=== PATIENT | male | born 1945 | race Two or more races ===

== ENCOUNTER 2023-07-21 16:14 | Inpatient (IN) | payer OTHER, MEDICAID ==
[~2023-07-21] VITALS: Ht 165.1 cm; Wt 54.5 kg
[2023-07-21 16:44] LABS: Hemoglobin 10.1 g/dL (13.5-17.5); White Blood Cell 5.4 10^3/uL (4.4-10.8)
[2023-07-21] MEDS: SODIUM CHLORIDE 0.9% 1,000 ML IV ONE (16:45)
[2023-07-21 16:46] LABS: Hematocrit 31.3 % (41.0-53.0); Mean Corpuscular Hemoglobin 33.8 pg (28.0-32.0); Mean Corpuscular Hgb Conc. 32.2 g/dL (32.0-36.0); Mean Corpuscular Volume 105.1 fL (80.0-100.0); Red Blood Cells 2.98 10^6/uL (4.5-5.90); Red Cell Distribution Width 15.6 % (11.8-14.3)
[2023-07-21 16:54] LABS: Chloride 106 mmol/L (98-107); Sodium 137 mmol/L (136-145)
[2023-07-21 16:55] LABS: Anion Gap 3 (5-15); Carbon Dioxide 28 mmol/L (20-30)
[2023-07-21 16:56] LABS: Basophils % (manual) 0 (0.0-2.0); Blast Cells 0; Calcium 8.9 mg/dL (8.7-10.4); Metamyelocytes % 0; Promyelocytes % 0; Reactive Lymphocytes 0
[2023-07-21 17:01] LABS: BUN/Creatinine Ratio 13.8 (10.0-20.0); Blood Urea Nitrogen 22 mg/dL (9-23); Glucose 164 mg/dL (74-106)
[2023-07-21 17:15] VITALS: PULSE 62; RESP 18; O2SAT 96
[2023-07-21 17:22] LABS: Band Neutrophils % (manual) 3; Lymphocytes % (manual) 14 (10.0-50.0); Monocytes % (manual) 6 (0-12)
[2023-07-21 17:23] LABS: Anisocytosis Slight; Eosinophils % (manual) 4 (0-7); Myelocytes % 1; Platelet Estimate Decreased
[2023-07-21 17:24] LABS: Large Platelets FEW; Macrocytosis Slight; Tear Drop Cells FEW
[2023-07-21 18:50] LABS: Urine Bacteria FEW /hpf (None Seen); Urine Blood 3+ /uL (Negative); Urine Clarity Clear (Clear); Urine Color Yellow (Yellow); Urine Hyaline Cast MOD /lpf (0 - 2); Urine Protein, UAD TRACE (Negative); Urine Sperm PRESENT /hpf (None Seen); Urine Urobilinogen Normal (Negative); Urine WBC 2 /hpf (0 - 3); Urine pH 5.5 (5.0-8.0)
[2023-07-21 19:45] VITALS: PULSE 72; RESP 16; O2SAT 98
[2023-07-21 21:25] LABS: Amphetamine Screen, Urine Neg (NEGATIVE); Barbiturate Scree,Urine Neg (NEGATIVE); Benzodiazephine Screen, Urine Neg (NEGATIVE); Cocaine Screen, Urine Neg (NEGATIVE); Opiate Scree,Urine Neg (NEGATIVE); Phencyclidine Screen, Urine Neg (NEGATIVE)
[2023-07-21 21:26] LABS: Cannabinoid Screen, Urine Neg (NEGATIVE)
[2023-07-21] MEDS: cefTRIAXone 1GM/50ML D5W 50 ML IV ONE (21:31)
[2023-07-21] MEDS ORDERED: ONDANSETRON HCL 4 MG/2 ML VIAL IV PRN (23:30)
[2023-07-21] MEDS ORDERED: NITROGLYCERIN 0.4 MG SL TAB SL PRN (23:30)
[2023-07-21] MEDS ORDERED: MORPHINE SULFATE INJ 2 MG/ml SYRG IV PRN (23:30)
[2023-07-21] MEDS ORDERED: ACETAMINOPHEN 325 MG TAB PO PRN (23:30)
[2023-07-22] VITALS (11 sets, daily range): BP systolic 107–141; BP diastolic 46–72; PULSE 20–78; RESP 14–20; TEMP 97.8–99.3; O2SAT 92–97
[2023-07-22 06:30] LABS: Anion Gap 4 (5-15); Carbon Dioxide 26 mmol/L (20-30); Chloride 109 mmol/L (98-107); Potassium 3.9 mmol/L (3.5-5.1); Sodium 139 mmol/L (136-145)
[2023-07-22 06:32] LABS: Calcium 8.7 mg/dL (8.5-10.1)
[2023-07-22 06:36] LABS: BUN/Creatinine Ratio 14.9 (10.0-20.0); Blood Urea Nitrogen 20 mg/dL (9-23); Glucose 160 mg/dL (74-106)
[2023-07-22] MEDS: ASPirin 81 mg TAB PO SCH (09:17)
[2023-07-22] MEDS: LISINOPRIL 5 MG TAB PO SCH (09:19)
[2023-07-22 11:51] LABS: Basophils # (auto) 0 10 ^3/uL (0-0.2); Basophils % (auto) 0.2 % (0.0-2.0); Eosinophils # (auto) 0.4 10 ^3/uL (0-0.8); Hematocrit 29.8 % (41.0-53.0); Hemoglobin 9.6 g/dL (13.5-17.5); Lymphocytes # (auto) 0.8 10 ^3/uL (0.4-5.4); Mean Corpuscular Hgb Conc. 32.3 g/dL (32.0-36.0); Monocytes # (auto) 0.1 10 ^3/uL (0-1.3); Red Cell Distribution Width 15.2 % (11.8-14.3)
[2023-07-22 11:53] LABS: Eosinophils % (auto) 7.9 % (0.0-7.0); Lymphocytes % (auto) 17.1 % (10.0-50.0); Mean Corpuscular Hemoglobin 33.8 pg (28.0-32.0); Mean Corpuscular Volume 104.6 fL (80.0-100.0); Monocytes % (auto) 1.3 % (0.0-12.0); Neutrophils # (auto) 3.3 10 ^3/uL (1.6-8.6); Neutrophils % (auto) 73.5 % (37.0-80.0); Red Blood Cells 2.85 10^6/uL (4.5-5.90); White Blood Cell 4.5 10^3/uL (4.4-10.8)
[2023-07-22 12:02] LABS: INR 1.09 (0.9-1.15); Partial Thromboplastin Time 27.4 SEC (24.5-34.5); Prothrombin Time 11.4 sec (9.3-11.8)
[2023-07-22 12:05] LABS: Albumin 3.6 g/dL (3.2-4.8); Alkaline Phosphatase 64 U/L (46-116); Anion Gap 1 (5-15); Aspartate Aminotransferase 13 U/L (13-40); BUN/Creatinine Ratio 15.2 (10.0-20.0); Bilirubin, Total 0.6 mg/dL (0.2-1.0); Blood Urea Nitrogen 20 mg/dL (9-23); Calcium 8.8 mg/dL (8.5-10.1); Carbon Dioxide 29 mmol/L (20-30); Chloride 106 mmol/L (98-107); Cholesterol 87 mg/dL (< 200); Glucose 229 mg/dL (74-106); HDL Cholesterol 32 mg/dL (40-59); LDL Cholesterol 43 mg/dL (< 100); Phosphorus 2.9 mg/dL (2.4-5.1); Potassium 4.2 mmol/L (3.5-5.1); Sodium 136 mmol/L (136-145); Total Protein 6.1 g/dL (5.7-8.2); Triglycerides 75 mg/dL (< 150)
[2023-07-22 12:07] LABS: Alanine Aminotransferase < 9 U/L (7-40)
[2023-07-22 12:11] LABS: % Iron Saturation 42.5 % (20-55)
[2023-07-22] MEDS ORDERED: DEXTROSE (50%) 50ML SYRG IV PRN (12:15)
[2023-07-22 12:19] LABS: Wright Stain Ready for Review
[2023-07-22 12:25] LABS: Magnesium 1.8 mg/dL (1.6-2.6)
[2023-07-22] MEDS: THIAMINE 100mg/ml INJ (200mg/2ml VIAL) IV ONE (14:36)
[2023-07-22] MEDS: SODIUM CHLORIDE 0.9% 1,000 ML IV SCH (14:36)
[2023-07-22] MEDS: NICOTINE 21MG/24 HR TOPICAL PATCH TD ONE (14:40)
[2023-07-22] MEDS: FOLIC ACID 1 MG in D5W 5% 50 ML INJ ONE (15:23)
[2023-07-22] MEDS: InsuLIN REG 1unit/0.01ml Soln (100units/ml) SC SCH (17:00)
[2023-07-22] MEDS: ACCU-CHEK COMFORT CURVE STRIP VI SCH (17:00)
[2023-07-22] MEDS: ATORVASTATIN 20 MG TAB PO SCH (21:16)
[2023-07-23] VITALS (8 sets, daily range): BP systolic 121–145; BP diastolic 55–66; PULSE 58–77; RESP 17–20; TEMP 97.8–98.5; O2SAT 94–99
[2023-07-23] MEDS: THIAMINE 100mg/ml INJ (200mg/2ml VIAL) IV SCH (09:19)
[2023-07-23] MEDS: FOLIC ACID 1 MG in D5W 5% 50 ML INJ SCH (09:20)
[2023-07-23] MEDS: NICOTINE 21MG/24 HR TOPICAL PATCH TD SCH (09:21)
[2023-07-23 10:04] LABS: Chloride 108 mmol/L (98-107); Sodium 137 mmol/L (136-145)
[2023-07-23 10:05] LABS: Anion Gap 3 (5-15); Calcium 9.1 mg/dL (8.5-10.1); Carbon Dioxide 26 mmol/L (20-30)
[2023-07-23 10:10] LABS: BUN/Creatinine Ratio 12.9 (10.0-20.0); Blood Urea Nitrogen 17 mg/dL (9-23); Glucose 169 mg/dL (74-106)
[2023-07-23 11:10] LABS: Basophils # (auto) 0 10 ^3/uL (0-0.2); Basophils % (auto) 0.2 % (0.0-2.0); Eosinophils # (auto) 0.5 10 ^3/uL (0-0.8); Eosinophils % (auto) 7.5 % (0.0-7.0); Hemoglobin 10.6 g/dL (13.5-17.5); Lymphocytes % (auto) 13.3 % (10.0-50.0); Mean Corpuscular Hemoglobin 33.9 pg (28.0-32.0); Mean Corpuscular Hgb Conc. 32.2 g/dL (32.0-36.0); Mean Corpuscular Volume 105.5 fL (80.0-100.0); Monocytes # (auto) 0.1 10 ^3/uL (0-1.3); Neutrophils # (auto) 5.6 10 ^3/uL (1.6-8.6); Nucleated Red Blood Cells % 0.1 %; Red Blood Cells 3.13 10^6/uL (4.5-5.90); Red Cell Distribution Width 15.2 % (11.8-14.3); White Blood Cell 7.1 10^3/uL (4.4-10.8)
[2023-07-23] MEDS: METOPROLOL TARTRATE 25 MG TAB PO ONE (17:07)
[2023-07-23] MEDS: METOPROLOL TARTRATE 25 MG TAB PO SCH (22:28)
[2023-07-24] VITALS (8 sets, daily range): BP systolic 129–149; BP diastolic 44–76; PULSE 57–74; RESP 16–20; TEMP 97.8–98.6; O2SAT 93–99
[2023-07-24 06:21] LABS: Basophils # (auto) 0 10 ^3/uL (0-0.2); Basophils % (auto) 0.2 % (0.0-2.0); Eosinophils # (auto) 0.5 10 ^3/uL (0-0.8); Eosinophils % (auto) 7.4 % (0.0-7.0); Monocytes # (auto) 0.1 10 ^3/uL (0-1.3)
[2023-07-24 06:23] LABS: Hematocrit 29.4 % (41.0-53.0); Hemoglobin 9.7 g/dL (13.5-17.5); Lymphocytes # (auto) 0.8 10 ^3/uL (0.4-5.4); Lymphocytes % (auto) 11.5 % (10.0-50.0); Mean Corpuscular Hemoglobin 34.4 pg (28.0-32.0); Mean Corpuscular Volume 104.2 fL (80.0-100.0); Monocytes % (auto) 0.8 % (0.0-12.0); Neutrophils # (auto) 5.5 10 ^3/uL (1.6-8.6); Neutrophils % (auto) 80.1 % (37.0-80.0); Red Blood Cells 2.82 10^6/uL (4.5-5.90); Red Cell Distribution Width 15.4 % (11.8-14.3); White Blood Cell 6.9 10^3/uL (4.4-10.8)
[2023-07-24 06:32] LABS: Albumin 3.5 g/dL (3.2-4.8); Alkaline Phosphatase 60 U/L (46-116); Anion Gap 5 (5-15); Aspartate Aminotransferase 12 U/L (13-40); Bilirubin, Total 0.5 mg/dL (0.2-1.0); Blood Urea Nitrogen 17 mg/dL (9-23); Calcium 8.1 mg/dL (8.7-10.4); Carbon Dioxide 25 mmol/L (20-30); Chloride 109 mmol/L (98-107); Glucose 118 mg/dL (74-106); Magnesium 1.9 mg/dL (1.6-2.6); Sodium 139 mmol/L (136-145); Total Protein 6.4 g/dL (5.7-8.2)
[2023-07-24 06:37] LABS: Alanine Aminotransferase < 9 U/L (7-40)
[2023-07-24] MEDS: EMPAGLIFLOZIN 10 MG TAB PO SCH (09:37)
[2023-07-24] MEDS: SPIRONOLACTONE 25 MG TAB PO SCH (09:37)
[2023-07-24] MEDS ORDERED: FURO1TAB31 PO (17:52)
[2023-07-24] MEDS ORDERED: METF-370 PO ×2 (17:52)
[2023-07-24] MEDS ORDERED: ATOR40TA52 PO (17:52)
[2023-07-24] MEDS ORDERED: GLIP10TA9 PO (17:52)
[2023-07-24] MEDS: MAGNESIUM OXIDE 400 MG TAB PO ONE (19:34)
[2023-07-24] MEDS: AMIODARONE HCL 200 MG TAB PO ONE (19:34)
[2023-07-25 05:00] VITALS: BP 104/64; PULSE 59; RESP 16; TEMP 98.3; O2SAT 99
[2023-07-25 08:00] VITALS: PULSE 61
[2023-07-25 08:05] VITALS: PULSE 65; RESP 16; O2SAT 99
[2023-07-25 09:00] VITALS: BP 121/66; PULSE 65; RESP 16; TEMP 97.8; O2SAT 99
[2023-07-25] MEDS: AMIODARONE HCL 200 MG TAB PO SCH (09:18)
[2023-07-25] MEDS: MAGNESIUM OXIDE 400 MG TAB PO SCH (09:19)
[2023-07-25] MEDS ORDERED: SPIR25TA PO (12:32)
[2023-07-25] MEDS ORDERED: AMIO200T33 PO (12:32)
[2023-07-25] MEDS ORDERED: LISI20TA56 PO (12:32)
[2023-07-25] MEDS ORDERED: EMPA1TAB PO (12:32)
[2023-07-25] MEDS ORDERED: MET25T PO (12:32)
[2023-07-25 13:00] VITALS: BP 143/57; PULSE 64; RESP 18; TEMP 97.6; O2SAT 98
[2023-07-25 13:15] VITALS: BP 121/66; PULSE 67
== END 2023-07-25 14:55 | disposition home or self-care (01) | DRG 640 ==
LOC: EDBD 16:14 → ER 16:14 → TELE-WESTW 23:22 → TELE 23:22 → TELE-WESTW 07-22 02:56
PROVIDERS: ADMIT Nurse Practitioner; ATTEND Internal Medicine
DX: E86.0 Dehydration (principal); N17.0 Acute kidney failure with tubular necrosis; S06.9X1A Unspecified intracranial injury with loss of consciousness of 30 minutes or less, initial encounter; I50.22 Chronic systolic (congestive) heart failure; I47.29 Other ventricular tachycardia; D69.6 Thrombocytopenia, unspecified; Z20.822 Contact with and (suspected) exposure to COVID-19; F10.10 Alcohol abuse, uncomplicated; I95.1 Orthostatic hypotension; E11.9 Type 2 diabetes mellitus without complications; E78.5 Hyperlipidemia, unspecified; I11.0 Hypertensive heart disease with heart failure; D53.9 Nutritional anemia, unspecified; H91.93 Unspecified hearing loss, bilateral; Z79.4 Long term (current) use of insulin; Z86.79 Personal history of other diseases of the circulatory system; Z72.0 Tobacco use; W18.39XA Other fall on same level, initial encounter; Y93.89 Activity, other specified; Y92.89 Other specified places as the place of occurrence of the external cause; Y99.8 Other external cause status
CPT/HCPCS: 36415; 70450; 71045; 72125; 76775; 80048; 80053; 80061; 80307; 80320; 81001; 82140; 82270; 82306; 82607; 82746; 82962; 83010; 83036; 83540; 83550; 83605; 83615; 83735; 84100; 84443; 84484; 85007; 85025; 85027; 85045; 85610; 85730; 93005; 93306; 93886; 97110; 97116; 97163; 97530; G0378; J1815; J7060

== ENCOUNTER 2024-07-05 13:44 | Inpatient (IN) | payer MEDICAID, OTHER ==
[~2024-07-05] VITALS: Ht 163.8 cm; Wt 46.0 kg
[~2024-07-05 13:44] MED LIST: AMIO200T33 PO; ATOR40TA52 PO; EMPA1TAB PO; FURO1TAB31 PO; GLIP10TA9 PO; LISI20TA56 PO; MET25T PO; METF-370 PO; SPIR25TA PO
--- NOTE | 2024-07-05 14:24 | ED.PDOC ---
Altered Mental Status HPI Comments 79-year-old male with unknown PMHx presents with a chief complaint of ALOC x unknown onset. Patient is alone and came to the ER complaining of weakness. Patient is hard of hearing, rambling speech and nonlinear train of thought. No family present to verify patients baseline. Patient was hypotensive in triage at 80/33 and 76/29. Unable to gather further medical information at this time due to patients ALOC. Chief Complaint: General Weakness Time Seen by MD: 14:14 Primary Care Provider: CARISA Rubi Notes: Medications, Allergies Allergies: Coded Allergies: NO KNOWN ALLERGIES (Unverified , 07/21/23) Home Meds Active Scripts Metoprolol Tartrate (Lopressor) 25 Mg Tb, 12.5 MG PO BID, #30 TAB 3 Refills Prov:CHALINO WAN MD 07/25/23 Spironolactone (Aldactone) 25 Mg Tab, 25 MG PO DAILY, #30 TAB Prov:CHALINO WAN MD 07/25/23 Lisinopril (Lisinopril) 20 Mg Tab, 0.5 TAB PO DAILY, #30 TAB 5 Refills Prov:CHALINO WAN MD 07/25/23 Empagliflozin (Jardiance) 10 Mg Tab, 10 MG PO DAILY, #30 TAB 5 Refills Prov:CHALINO WAN MD 07/25/23 Amiodarone Hcl (Amiodarone Hcl) 200 Mg Tab, 200 MG PO BID, #60 TAB Prov:CHALINO WAN MD 07/25/23 Reported Medications Furosemide (Lasix) 40 Mg Tab, 40 MG PO DAILY, TAB 07/24/23 Glipizide (Glipizide) 10 Mg Tab, 10 MG PO DAILY for 30 Days, MG 07/24/23 Metformin Hydrochloride (Metformin Hcl) 500 Mg Tab, 1000 MG PO DAILY@DINNER for 30 Days, MG 07/24/23 Metformin Hydrochloride (Metformin Hcl) 500 Mg Tab, 500 MG PO DAILY@BREAKFAST for 30 Days, MG 07/24/23 Atorvastatin Calcium (ATORVASTATIN CALCIUM) 40 Mg Tab, 1 TAB PO DAILY, #30 TAB 5 Refills 07/24/23 Information Source: Patient Mode of Arrival: Wheelchair Severity: Moderate, Unable to Care for Self Timing: Other (UNKNOWN) Duration: Since onset Prehospital treatment: None Quality: Change in Behavior, Confusion History of: None Past Medical History PAST MEDICAL HISTORY: Pt Confused Surgical History: Pt Confused Family History Family History: Pt Confused Social History Smoker: Pt Confused Alcohol: Pt Confused Drugs: Pt Confused Lives In: Pt Confused Constitutional: denies: chills, diaphoresis, fatigue, fever, malaise, sweats, weakness, others EENTM: denies: blurred vision, double vision, ear bleeding, ear discharge, ear drainage, ear pain, ear ringing, eye pain, eye redness, hearing loss, mouth pain, mouth swelling, nasal discharge, nose bleeding, nose congestion, nose pain, photophobia, tearing, throat pain, throat swelling, voice changes, others Respiratory: denies: cough, hemoptysis, orthopnea, SOB at rest, shortness of breath, SOB with excertion, stridor, wheezing, others Cardiovascular: denies: chest pain, dizzy spells, diaphoresis, Dyspnea on exertion, edema, irregular heart beat, left arm pain, lightheadedness, palpitations, PND, syncope, others Gastrointestinal: denies: abdomen distended, abdominal pain, blood streaked bowels, constipated, diarrhea, dysphagia, difficulty swallowing, hematemesis, melena, nausea, poor appetite, poor fluid intake, rectal bleeding, rectal pain, vomiting, others Genitourinary: denies: burning, dysuria, flank pain, frequency, hematuria, incontinence, penile discharge, penile sore, pain, testicle pain, testicle swelling, urgency, others Neurological: denies: dizziness, fainting, headache, left sided numbness, left sided weakness, numbness, paresthesia, pre-existing deficit, right sided numbness, right sided weakness, seizure, speech problems, tingling, tremors, wea kness, others Musculoskeletal: denies: back pain, gout, joint pain, joint swelling, muscle pain, muscle stiffness, neck pain, others Integumetry: denies: bruises, change in color, change in hair/nails, dryness, l aceration, lesions, lumps, rash, wounds, others Allergic/Immunocompromised: denies: Difficulty Healing, Frequent Infections, Hives, Itching, others Hematologic/Lymphatic: denies: anemia, blood clots, easy bleeding, easy bruising, swollen glands, others Endocrine: denies: excessive hunger, excessive sweating, excessive thirst, excessive urination, flushing, intolerance to cold, intolerance to heat, unexplained weight gain, unexplained weight loss, others Psychiatric: denies: anxiety, bipolar disorder, depression, hopeless, panic disorder, schizophrenia, sleepless, suicidal, others Unable to Obtain due to: Altered Mental Status All Other Systems: Reviewed and Negative Physical Exam General Appearance: Moderate Distress, Normal HEENT: Normal ENT Inspection, Pharynx Normal, TMs Normal Neck: Full Range of Motion, Non-Tender, Normal, Normal Inspection Respiratory: Chest Non-Tender, Lungs Clear, No Accessory Muscle Use, No Respiratory Distress, Normal Breath Sounds Cardiovascular: No Edema, No JVD, No Murmur, No Gallop, Normal Peripheral Pulses, Regular Rate/Rhythm Breast Exam: Deferred Gastrointestinal: No Organomegaly, Non Tender, No Pulsatile Mass, Normal Bowel Sounds, Soft Genitalia: Deferred Pelvic: Deferred Rectal: Deferred Extremities: No calf tenderness, Normal capillary refill, Normal inspection, Normal range of motion, Non-tender, No pedal edema Musculoskeletal : Apperance: Normal Neurologic: Disoriented, No Motor Deficits, Normal Affect, Normal Mood, No Sen leanna Deficits Cerebellar Function: NOT DONE Reflexes: NOT DONE Skin: Dry, Normal Color, Warm Peripheral Pulses: 3+ Radial (R), 3+ Radial (L) Lymphatic: No Adenopathy Was a procedure done? Was a procedure done?: No Differential Diagnosis (ALOC) Differential Diagnosis: Dehydration, Encephalopathy X-Ray, Labs, Meds, VS Vital Signs Date Time Temp Pulse Resp B/P (MAP) Pulse Ox O2 Delivery O2 Flow Rate FiO2 07/05/24 14:33 80 24 96/74 (81) 94 07/05/24 14:30 76 17 92 Nasal Cannula* 2 28 07/05/24 14:16 97.0 83 18 80/33 (49) 98 Lab Test 07/05/24 14:50 07/05/24 14:13 Range/Units White Blood Count 19.3 H 4.4-10.8 10^3/uL Red Blood Count 2.53 L 4.5-5.90 10^6/uL Hemoglobin 8.3 L 13.5-17.5 g/dL Hematocrit 26.7 L 41.0-53.0 % Mean Corpuscular Volume 105.6 H 80.0-100.0 fL Mean Corpuscular Hemoglobin 32.7 H 28.0-32.0 pg Mean Corpuscular Hemoglobin Concent 30.9 L 32.0-36.0 g/dL Red Cell Distribution Width 16.0 H 11.8-14.3 % Platelet Count 74 L 140-450 10^3/uL Mean Platelet Volume 12.2 H 6.9-10.8 fL Neutrophils (%) (Auto) 37.0-80.0 % Lymphocytes (%) (Auto) 10.0-50.0 % Monocytes (%) (Auto) 0.0-12.0 % Basophils (%) (Auto) 0.0-2.0 % Neutrophils # (Auto) 1.6-8.6 10 ^3/uL Lymphocytes # (Auto) 0.4-5.4 10 ^3/uL Monocytes # (Auto) 0-1.3 10 ^3/uL Differential Total Cells Counted 100.0 100 Neutrophils % (Manual) 91 H 37.0-80.0 Band Neutrophils % (Manual) 2 Lymphocytes % (Manual) 4 L 10.0-50.0 Monocytes % (Manual) 3 0-12 Eosinophils % (Manual) 0 0-7 Basophils % (Manual) 0 0.0-2.0 Metamyelocytes % (manual) 0 Myelocytes % (Manual) 0 Promyelocytes % (Manual) 0 Blast Cells % (Manual) 0 Reactive Lymphocytes 0 Platelet Estimate Decreased Large Platelets Few Macrocytosis Slight Tear Drop Cells Few Sodium Level 137 136-145 mmol/L Potassium Level 4.2 3.5-5.1 mmol/L Chloride Level 102 98-107 mmol/L Carbon Dioxide Level 27 20-31 mmol/L Anion Gap 8 5-15 Blood Urea Nitrogen 33 H 9-23 mg/dL Creatinine 2.11 H 0.700-1.30 mg/dL Glomerular Filtration Rate Calc 31 >90 mL/min BUN/Creatinine Ratio 15.6 10.0-20.0 Serum Glucose 123 H 74-106 mg/dL Lactic Acid Level 1.7 0.4-2.0 mmol/L Calcium Level 8.3 L 8.7-10.4 mg/dL Total Bilirubin 0.3 0.2-1.0 mg/dL Aspartate Amino Transferase (AST) 9 L 13-40 U/L Alanine Aminotransferase (ALT) < 9 7-40 U/L Alkaline Phosphatase 68 46-116 U/L Troponin I High Sensitivity 9 </=54 ng/L Total Protein 6.9 5.7-8.2 g/dL Albumin 3.5 3.2-4.8 g/dL POC Glucose 134 H 70-106 mg/dl Current Medications Medications (Trade) Dose Ordered Sig/Epi Route Start Time Stop Time Status Last Admin Piperacillin Sod/ Tazobactam Sod 100 ml @ 100 mls/hr ONCE ONCE IV 07/05/24 14:30 07/05/24 15:29 DC 07/05/24 15:22 Sodium Chloride 1,000 ml @ 1,000 mls/hr Q1H ONCE IV 07/05/24 14:30 07/05/24 15:29 DC 07/05/24 14:54 Sodium Chloride 1,000 ml @ 150 mls/hr Q6H40M ONCE IV 07/05/24 14:30 07/05/24 21:09 07/05/24 16:15 Patient confused. Unable to get a good history. Possible sepsis. Establish intravenous access. Was given fluids. Was given Zosyn. Continue to monitor. [place] approved inpatient admission [id number]. Time of 1ST Reevaluation: 14:44 Reevaluation 1ST: Unchanged Patient Education/Counseling: Diagnosis, Treatment, Prognosis Family Education/Counseling: Diagnosis, Treatment, Prognosis Departure 1 Departure Time of Disposition: 14:26 Impression: Primary Impression: Metabolic encephalopathy Additional Impressions: Sepsis, unspecified organism Qualified Codes: A41.9 - Sepsis, unspecified organism Pneumonia Qualified Codes: J18.9 - Pneumonia, unspecified organism Disposition: ADMITTED INPATIENT Admit to: Med Surg Condition: Guarded Critical Care Note Critical Care Time?: Yes (90 min-critical care time only) Stability Stability form required: No Heart Score Heart Score: Heart Score Response (Comments) Value History Slightly Suspicious 0 EKG Normal 0 Age >65 2 Risk Factors >3 or Hx ASHD 2 Troponin Normal limit 0 Total 4 I personally scribed for JAMAAL DORAN MD ([email or web address]) on 07/05/24 at 14:24. Electronically submitted by Abimael Alberts ([email or web address]). JAMAAL DORAN MD Jul 05, 2024 14:24
[2024-07-05 14:30] VITALS: PULSE 76; RESP 17; O2SAT 92
[2024-07-05] MEDS: SODIUM CHLORIDE 0.9% 1,000 ML IV ONE ×3 (14:54→22:46)
--- NOTE | 2024-07-05 15:02 | DVH ---
CHEST RADIOGRAPH Indication: sob Technique: Single frontal view of the chest was obtained Comparison: XY CHEST PORTABLE on DOS: 07/21/23 FINDINGS: Lines and Tubes: None Lungs: Bilateral perihilar infiltrates with involving the lower lobes right greater than left. Pleura: No effusion. No pneumothorax. Cardiomediastinal contours: Unremarkable Bones: No acute osseous abnormality. IMPRESSION: 1. Bilateral perihilar infiltrates with airspace disease in the lower lobes right worse than left.
[2024-07-05 15:15] LABS: Hemoglobin 8.3 g/dL (13.5-17.5); Mean Corpuscular Hemoglobin 32.7 pg (28.0-32.0)
[2024-07-05 15:17] LABS: Hematocrit 26.7 % (41.0-53.0); Mean Corpuscular Hgb Conc. 30.9 g/dL (32.0-36.0); Mean Corpuscular Volume 105.6 fL (80.0-100.0); Platelet Count (auto) 74 10^3/uL (140-450); Red Blood Cells 2.53 10^6/uL (4.5-5.90); White Blood Cell 19.3 10^3/uL (4.4-10.8)
[2024-07-05] MEDS: PIPERACILLIN-TAZOB 3.375GM 100 ML IV ONE (15:22)
[2024-07-05 15:30] LABS: Alkaline Phosphatase 68 U/L (46-116); Anion Gap 8 (5-15); BUN/Creatinine Ratio 15.6 (10.0-20.0); Carbon Dioxide 27 mmol/L (20-31); Chloride 102 mmol/L (98-107); Potassium 4.2 mmol/L (3.5-5.1); Sodium 137 mmol/L (136-145)
[2024-07-05 15:31] LABS: Albumin 3.5 g/dL (3.2-4.8); Total Protein 6.9 g/dL (5.7-8.2)
[2024-07-05 15:38] LABS: Basophils % (manual) 0 (0.0-2.0); Blast Cells 0; Eosinophils % (manual) 0 (0-7); Metamyelocytes % 0; Myelocytes % 0; Promyelocytes % 0; Reactive Lymphocytes 0
[2024-07-05 15:51] LABS: Alanine Aminotransferase < 9 U/L (7-40); Aspartate Aminotransferase 9 U/L (13-40); Bilirubin, Total 0.3 mg/dL (0.2-1.0); Blood Urea Nitrogen 33 mg/dL (9-23); Calcium 8.3 mg/dL (8.7-10.4); Glucose 123 mg/dL (74-106)
[2024-07-05 16:13] LABS: Band Neutrophils % (manual) 2; Lymphocytes % (manual) 4 (10.0-50.0); Monocytes % (manual) 3 (0-12)
[2024-07-05 16:14] LABS: Large Platelets FEW; Macrocytosis Slight; Platelet Estimate Decreased; Tear Drop Cells FEW
[2024-07-05] MEDS ORDERED: NOREPINEPHRINE 8 MG/250ML KIT 250 ML IV SCH (16:15)
--- NOTE | 2024-07-05 17:10 | DVH ---
EXAM: CT Abdomen and Pelvis Without Intravenous Contrast CLINICAL INDICATION: colitis TECHNIQUE: Axial computed tomography images of the abdomen and pelvis without intravenous contrast. This CT exam was performed using one or more of the following dose reduction techniques: automated exposure control, adjustment of the mA and/or kV according to patient size, and/or use of iterative r econstruction technique. CONTRAST: RADIATION DOSE: CTDIvol = 5.07 mGy, DLP = 249.58 mGy-cm COMPARISON: None FINDINGS: LUNG BASES: Partially visualized lung emphysema. No consolidation. ABDOMEN: LIVER: Unremarkable. GALLBLADDER AND BILE DUCTS: Unremarkable. No calcified stones. No ductal dilation. PANCREAS: Unremarkable. No ductal dilation. SPLEEN: Unremarkable. No splenomegaly. ADRENALS: Unremarkable. No mass. KIDNEYS AND URETERS: Unremarkable. No obstructing stones. No hydronephrosis. STOMACH AND BOWEL: Fecal retention in the colon consistent with constipation. No significant infla mmation of the colon to suggest colitis. However, evaluation is suboptimal secondary to motion artif acts. No obstruction. PELVIS: APPENDIX: No findings to suggest acute appendicitis. BLADDER: Unremarkable. No stones. REPRODUCTIVE: Unremarkable as visualized. ABDOMEN and PELVIS: INTRAPERITONEAL SPACE: Unremarkable. No free air. No significant fluid collection. BONES/JOINTS: No acute fracture. No dislocation. SOFT TISSUES: Unremarkable. VASCULATURE: Infrarenal aortic aneurysm with indwelling stent extending to the iliacs, bilaterally. Further evaluation is limited without IV contrast administration. Scattered calcified atherosclero tic disease of aorta. LYMPH NODES: Unremarkable. No enlarged lymph nodes. OTHER FINDINGS: . . . . IMPRESSION: 1. Infrarenal aortic aneurysm with indwelling stent extending to the iliacs, bilaterally. Further e valuation is limited without IV contrast administration. 2. Fecal retention in the colon consistent with constipation. 3. No significant inflammation of the colon to suggest colitis. However, evaluation is suboptimal s econdary to motion artifacts.
--- NOTE | 2024-07-05 17:11 | DVH ---
EXAM: CT HEAD WITHOUT CONTRAST INDICATION: altered TECHNIQUE: CT of the head without intravenous contrast. Radiation Dose Information: CT Dose: CTDI volume is 55.16 mGy. Dose-length product is 976.73 mGy*cm The dose indicators for CT are the volume Computed Tomography (CT) Dose Index (CTDIvol) and the Dose Length Product (DLP), and are measured in units of mGy and mGy-cm, respectively. These indicators are not patient dose, but values generated from the CT scanner acquisition factors. The report includes radiation exposure data for exposures received during this examination. COMPARISON: CT HEAD WITHOUT CONTRAST on DOS: 07/21/23 FINDINGS: There is no evidence of acute intracranial hemorrhage, extra-axial collection, mass effect, midline s hift, herniation or hydrocephalus. The ventricles, sulci and cisterns are age appropriate. The early-white differentiation is intact. Patchy periventricular and subcortical white matter hypoattenuation is nonspecific but may be related to small vessel ischemic disease. Mucosal thickening of the right maxillary sinus and mastoid air cells are clear. The surrounding soft tissues and osseous structures are unremarkable. IMPRESSION: 1. No acute intracranial hemorrhage 2. No CT findings of territorial ischemia.
[2024-07-05] MEDS: AZITHROMYCIN 500MG/ 250ML 250 ML IV ONE (17:20)
[2024-07-05] MEDS: metroNIDAZOLE 500MG/100ML 100 ML IV ONE (20:04)
[2024-07-05 20:36] LABS: Triglycerides 96 mg/dL (< 150)
[2024-07-05 20:37] LABS: LDL Cholesterol 46 mg/dL (< 100)
[2024-07-05 20:38] LABS: Cholesterol 90 mg/dL (< 200)
[2024-07-05 20:40] LABS: HDL Cholesterol 30 mg/dL (40-59)
[2024-07-05] MEDS ORDERED: ACETAMINOPHEN 325 MG TAB PO PRN (21:15)
[2024-07-05] MEDS ORDERED: VANCOMYCIN PER PHARMACY 0 MG IV SCH (21:15)
[2024-07-05 21:33] LABS: Triglycerides 70 mg/dL (< 150)
[2024-07-05 21:34] LABS: LDL Cholesterol 40 mg/dL (< 100)
[2024-07-05 21:36] LABS: Cholesterol 78 mg/dL (< 200); HDL Cholesterol 23 mg/dL (40-59)
[2024-07-05] MEDS: VANCOMYCIN 1GM/250ML KIT 250 ML IV ONE (21:45)
--- NOTE | 2024-07-05 22:07 | DVHHPRES ---
History of Present Illness Resident Creating Document: CARIE REYES History of Present Illness This is a 79-year-old male with past medical history of hypertension, type 2 diabetes, dyslipidemia, S/P AAA repair, bilateral hearing loss, rest of past medical history is unknown due to patient being poor historian. The patient presented to the ED with chief complaint of generalized weakness, shortness of breath associated with cough and minimal sputum production. Patient is overall poor historian, he states he was also worry of having pneumonia once again due to his cough, mild shortness of breath and sputum production. We asked the patient if he has any additional family members but patient denied. Initial labs showed a WBC of 19.3, hemoglobin of 8.3, BUN and creatinine were 33 and 2.11 respectively. Troponins came back negative and ammonia was on normal range. Chest x-ray was showing bilateral patchy infiltrates are more prominent on the right lower lobe. CT of the abdomen showed infrarenal aortic aneurysm with indwelling stent extending to the iliacs bilaterally, there was also fecal retention in the colon consistent with constipation. CT scan of the head showed no acute intracranial hemorrhage or acute ischemic changes. We will start the patient on IV vancomycin and cefepime since the patient is having sepsis and had previous episodes of pneumonia. Patient will be admitted for further assessment and management. Cardiovascular: HTN, hyperipidemia Endocrine: Diabetes Past Surgical History AAA repair Family History: None Smoke: No ALCOHOL: none Drugs: None Lives: Alone Domestic Violence: Neg Review of Systems Constitutional: Yes: Weakness, Malaise; No: Fever, Chills, Sweats, Other Eyes: No: Pain, Vision change, Conjunctivae inflammation, Eyelid inflammation, Other, Redness ENT: No: Ear pain, Ear discharge, Nose pain, Nose discharge, Nose congestion, Mouth pain, Mouth swelling, Throat pain, Throat swelling, Other Respiratory: Cough, Shortness of breath, SOB with excertion, Other (There are crackles in the right lung base.); No: Dry, Wheezing, Hemoptysis, Pleuritic Pain, Sputum, Wheezing Cardiovascular: No: Chest Pain, Palpitations, Orthopnea, Paroxysmal Noc. Dyspnea, Edema, Lt Headedness, Other Gastrointestinal: No: Nausea, Vomiting, Abdominal Pain, Diarrhea, Constipation, Melena, Hematochezia, Other Genitourinary: No Dysuria, No Frequency, No Incontinence, No Hematuria, No Retention, No Other Musculoskeletal: No: other, neck pain, shoulder pain, arm pain, back pain, hand pain, leg pain, foot pain Skin: No: Rash, Lesions, Jaundice, Bruising, Other Neurological: Weakness; No: Numbness, Incoordination, Change in speech, Confusion, Seizures, Other Allergies: Coded Allergies: NO KNOWN ALLERGIES (Unverified , 07/21/23) Medications Current Medications Medications Dose Ordered Sig/Epi Route Start Time Stop Time Status Last Admin Dose Admin Acetaminophen 650 mg Q6HP PRN PO 07/05/24 21:15 Enoxaparin Sodium 40 mg DAILY SC 07/06/24 10:00 UNV Vancomycin HCl 0 ml @ 0 mls/hr UD IV 07/05/24 21:15 UNV Cefepime HCl 50 ml @ 12.5 mls/hr Q12HR IV 07/05/24 22:00 UNV Exam Vital Signs Vital Signs Date Time Temp Pulse Resp B/P (MAP) Pulse Ox O2 Delivery O2 Flow Rate FiO2 07/05/24 20:00 81 07/05/24 18:00 16 107/38 (61) 96 07/05/24 14:30 Nasal Cannula* 2 28 07/05/24 14:16 97.0 General Appearance: Alert, Oriented X3, Cooperative, No acute distress, mild distress HEENT: Atraumatic, PERRLA, EOMI Respiratory: Normal air movement, Other (There are crackles present on bilateral lung bases more prominent on the right side.) Cardiovascular: Regular rate, Normal S1, Normal S2, No murmurs Abdominal: Normal bowel sounds, Soft, No tenderness, No hepatospenomegaly, No masses Extremities: No clubbing, No cyanosis, No edema, Normal pulses, No tenderness/swelling Skin: No rashes, No breakdown, No significant lesion Neuro: Normal gait, Normal speech, Strength at 5/5 X4 ext, Normal tone, Sensation intact, Cranial nerves 3-12 NL, Reflexes 2+ Psych/Mental Status: Mental status NL, Mood NL Labs/Xrays Labs Test 07/05/24 20:25 07/05/24 14:50 07/05/24 14:13 Range/Units Ammonia < 10 L 11-32 umol/L White Blood Count 19.3 H 4.4-10.8 10^3/uL Red Blood Count 2.53 L 4.5-5.90 10^6/uL Hemoglobin 8.3 L 13.5-17.5 g/dL Hematocrit 26.7 L 41.0-53.0 % Mean Corpuscular Volume 105.6 H 80.0-100.0 fL Mean Corpuscular Hemoglobin 32.7 H 28.0-32.0 pg Mean Corpuscular Hemoglobin Concent 30.9 L 32.0-36.0 g/dL Red Cell Distribution Width 16.0 H 11.8-14.3 % Platelet Count 74 L 140-450 10^3/uL Mean Platelet Volume 12.2 H 6.9-10.8 fL Neutrophils (%) (Auto) 37.0-80.0 % Lymphocytes (%) (Auto) 10.0-50.0 % Monocytes (%) (Auto) 0.0-12.0 % Basophils (%) (Auto) 0.0-2.0 % Neutrophils # (Auto) 1.6-8.6 10 ^3/uL Lymphocytes # (Auto) 0.4-5.4 10 ^3/uL Monocytes # (Auto) 0-1.3 10 ^3/uL Differential Total Cells Counted 100.0 100 Neutrophils % (Manual) 91 H 37.0-80.0 Band Neutrophils % (Manual) 2 Lymphocytes % (Manual) 4 L 10.0-50.0 Monocytes % (Manual) 3 0-12 Eosinophils % (Manual) 0 0-7 Basophils % (Manual) 0 0.0-2.0 Metamyelocytes % (manual) 0 Myelocytes % (Manual) 0 Promyelocytes % (Manual) 0 Blast Cells % (Manual) 0 Reactive Lymphocytes 0 Platelet Estimate Decreased Large Platelets Few Macrocytosis Slight Tear Drop Cells Few Sodium Level 137 136-145 mmol/L Potassium Level 4.2 3.5-5.1 mmol/L Chloride Level 102 98-107 mmol/L Carbon Dioxide Level 27 20-31 mmol/L Anion Gap 8 5-15 Blood Urea Nitrogen 33 H 9-23 mg/dL Creatinine 2.11 H 0.700-1.30 mg/dL Glomerular Filtration Rate Calc 31 >90 mL/min BUN/Creatinine Ratio 15.6 10.0-20.0 Serum Glucose 123 H 74-106 mg/dL Hemoglobin A1c 6.7 H <5.7 % A1C Lactic Acid Level 1.7 0.4-2.0 mmol/L Calcium Level 8.3 L 8.7-10.4 mg/dL Total Bilirubin 0.3 0.2-1.0 mg/dL Aspartate Amino Transferase (AST) 9 L 13-40 U/L Alanine Aminotransferase (ALT) < 9 7-40 U/L Alkaline Phosphatase 68 46-116 U/L Troponin I High Sensitivity 9 </=54 ng/L Total Protein 6.9 5.7-8.2 g/dL Albumin 3.5 3.2-4.8 g/dL POC Glucose 134 H 70-106 mg/dl Assessment/Plan Assessment/Plan Assessment/plan Acute metabolic/toxic encephalopathy -Ordered ammonia -CT of the head came back grossly unremarkable with no intracranial hemorrhage or acute stroke. Acute hypoxic respiratory failure likely due to Gram-positive/Gram-negative bacterial pneumonia Sepsis likely due to above -patient is currently on 3 L of oxygen through nasal cannula saturating 96% -initial chest x-ray showing bilateral patchy infiltrates in bilateral lung bases more prominent on the right side. -Start IV vancomycin -Start IV cefepime -sputum culture, blood culture, urine culture -monitor oxygen saturation Chronic systolic heart failure (HFrEF 40%) -BP is running on the lower side -Hold medications at this time, will restart HF GDMT once patient is stable from sepsis LOREN on CKD stage IIIB -BUN 33, creatinine 2.11 -start IV fluids at 100 cc/hour, hold after 1L -monitor kidney function Primary hypertension -currently blood pressure in the lower side -hold BP medications at this time and monitor closely Dyslipidemia -ordered lipid panel -Restart atorvastatin 40 mg daily Type 2 diabetes mellitus -ordered hemoglobin A1c -monitor blood glucose closely -Start mild sliding scale insulin S/P AAA repair -CT scan abd showed infrarenal aortic aneurysm with indwelling stent extending to the iliacs bilaterally. Patient is poor historian, tried to contact family but patient couldnt provide any additional information. Goals of care discussed with the patient at bedside for > 30min Plan discussed with Dr. Toney Plan discussed with: Patient My Orders Orders - CARIE REYES RESIDENT Procedure Category Date Status Time Stool Occult Blood LAB 07/05/24 Logged 20:12 Urinalysis LAB 07/05/24 Logged 20:12 Drug Screen LAB 07/05/24 Logged 20:12 Covid19 Antigen [facility] 07/05/24 Logged Rapid Influenza A&B LAB 07/05/24 Logged 20:15 Admit ADMIT 07/05/24 Transmitted 21:06 Code Status CODE 07/05/24 Transmitted 21:06 Vital Signs ADRIANA 07/05/24 In Process 21:06 Review Orders With [facility] 07/05/24 In Process Adm. 21:06 Encourage Activity As ADRIANA 07/05/24 In Process Tolerate 21:06 Regular Diet DIET 07/06/24 Transmitted Breakfast Acetaminophen Tablet PHA 07/05/24 In Process (Tylenol Tablet) 21:15 Notify Md Of Changes [facility] 07/05/24 In Process From Base 21:06 Advance Directive ADRIANA 07/05/24 In Process 21:06 Complete Blood Count LAB 07/06/24 Verified 04:00 Lipid Panel LAB 07/05/24 In Process 21:06 Urine Bacterial MYA 07/05/24 Logged Culture 21:06 Patient Condition ORDERS 07/05/24 Transmitted 21:06 Allergies ADRIANA 07/05/24 In Process 21:06 Enoxaparin Sodium PHA 07/06/24 Logged (Lovenox) 10:00 Vancomycin Per PHA 07/05/24 Logged Pharmacy 21:15 Cefepime 1gm/ 50ml PHA 07/05/24 Logged (Maxipime 1gm/50ml) 22:00 Blood Culture MYA 07/05/24 Logged 21:17 Respiratory Culture MYA 07/05/24 Logged W/ Gs 21:17 Date of Service: Jul 05, 2024 Billing Provider: PETE TONEY MD Common Visit Codes: [id number] INP/OBS CARE (HIGH) Secondary Visit Codes: [id number] CARE PLAN 30 MINUTES CARIE REYES RESIDENT Jul 05, 2024 22:07 PETE TONEY MD Jul 06, 2024 13:01
[2024-07-05] MEDS: CEFEPIME 1GM/ 50ML 50 ML IV SCH (23:30)
[2024-07-06 01:56] LABS: Urine Bacteria None Seen /hpf (None Seen)
[2024-07-06 02:16] LABS: Urine Blood 2+ /uL (Negative); Urine Clarity Clear (Clear); Urine Color Light-Yellow (Yellow); Urine Protein, UAD TRACE (Negative); Urine Specific Gravity 1.018 (1.001-1.035); Urine Squamous Epithelial Cell FEW /hpf (<5); Urine Urobilinogen Normal (Negative); Urine WBC 4 /HPF (0-3)
[2024-07-06 02:18] LABS: Phencyclidine Screen, Urine Neg (NEGATIVE)
[2024-07-06 02:28] LABS: COVID19 ANTIGEN SOFIA FIA NEGATIVE (NEGATIVE)
[2024-07-06 02:29] LABS: Rapid Influenza A Negative (Negative); Rapid Influenza B Negative (Negative)
[2024-07-06 02:32] LABS: Amphetamine Screen, Urine Neg (NEGATIVE); Barbiturate Scree,Urine Neg (NEGATIVE); Benzodiazephine Screen, Urine Neg (NEGATIVE); Cannabinoid Screen, Urine Neg (NEGATIVE); Cocaine Screen, Urine Neg (NEGATIVE); Opiate Scree,Urine Neg (NEGATIVE)
[2024-07-06 07:38] LABS: Anion Gap 6 (5-15); Carbon Dioxide 27 mmol/L (20-31); Chloride 106 mmol/L (98-107); Potassium 4.2 mmol/L (3.5-5.1); Sodium 139 mmol/L (136-145)
[2024-07-06 07:40] LABS: INR 1.03 (0.9-1.15); Partial Thromboplastin Time 29.1 SEC (24.5-34.5); Prothrombin Time 10.9 sec (9.3-11.8)
[2024-07-06 07:44] LABS: BUN/Creatinine Ratio 15.6 (10.0-20.0); Blood Urea Nitrogen 21 mg/dL (9-23); Calcium 8.4 mg/dL (8.7-10.4); Glucose 110 mg/dL (74-106)
[2024-07-06 07:46] LABS: Magnesium 1.9 mg/dL (1.6-2.6)
[2024-07-06 07:48] LABS: Blood Alcohol < 3.0 mg/dL (<10)
[2024-07-06 07:49] LABS: Basophils # (auto) 0 10 ^3/uL (0-0.2); Eosinophils # (auto) 0.2 10 ^3/uL (0-0.8); Lymphocytes # (auto) 0.8 10 ^3/uL (0.4-5.4); Monocytes # (auto) 0.1 10 ^3/uL (0-1.3); Neutrophils # (auto) 11.3 10 ^3/uL (1.6-8.6); Platelet Count (auto) 57 10^3/uL (140-450); Red Blood Cells 2.29 10^6/uL (4.5-5.90)
[2024-07-06 07:50] LABS: Eosinophils % (auto) 1.7 % (0.0-7.0); Hematocrit 23.8 % (41.0-53.0); Hemoglobin 7.6 g/dL (13.5-17.5); Lymphocytes % (auto) 6.6 % (10.0-50.0); Mean Corpuscular Hgb Conc. 31.8 g/dL (32.0-36.0); Mean Corpuscular Volume 103.9 fL (80.0-100.0); Monocytes % (auto) 0.6 % (0.0-12.0); Neutrophils % (auto) 91.1 % (37.0-80.0); Nucleated Red Blood Cells % 0.1 %; Red Cell Distribution Width 15.7 % (11.8-14.3); White Blood Cell 12.4 10^3/uL (4.4-10.8)
[2024-07-06] MEDS: SODIUM CHLORIDE 0.9% 1,000 ML IV SCH (08:21)
[2024-07-06 09:30] LABS: % Iron Saturation 15.8 % (20-55)
[2024-07-06] MEDS: POLYETHYLENE GLYCOL 17 GM PWDR PO PRN (09:38)
[2024-07-06] MEDS: ATORVASTATIN 20 MG TAB PO SCH (09:57)
[2024-07-06] MEDS: PANTOPRAZOLE 40 MG/10 ML VIAL INJ IV SCH (09:58)
[2024-07-06] MEDS ORDERED: ENOXAPARIN SOD 30 MG/0.3 ML SYRINGE SC SCH (10:00)
--- NOTE | 2024-07-06 12:10 | DVHPNRES ---
Progress Note Date Seen: Jul 06, 2024 Resident Creating Document: DEE WASHBURN RESIDENT Medical Necessity Reason Pt with a Central, PICC or Fol: Yes The following are medically ne: Thompson Catheter Subjective Review of Systems Ant Anthony is a 79-year-old male patient who presents to the ED chief complaint of generalized weakness, dyspnea in functional class III associated with productive cough with minimal yellow sputum. He also complained of epistaxis for 3 days which was self limiting one day before his admission. Patient reports pruritic rash which started 3 weeks ago after gardening, he mentions ex- also presented this rash, evaluated by a manager gas at [place] who said it was an allergic reaction. He does complain of infrequent blood in stool. Denies palpitations, chest pain, syncope, nausea, vomiting, diarrhea, recent travel and motor or sensitive deficits. Past medical history: hypertension, type 2 diabetes, dyslipidemia, S/P AAA repair, bilateral hearing impairment, anemia, thrombocytopenia, Surgical history: AAA repair. 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 Current smoker (40 pack history of smoking). Per EMR alcohol abuse. He denies current alcohol and other drug abuse Allergies: Denies Home medication: Amiodarone 200 mg p.o. b.i.d., atorvastatin 40 mg p.o. daily, empagliflozin 10 mg p.o. daily, furosemide 40 mg p.o. daily, glipizide 10 mg p.o. daily, lisinopril 10 mg p.o. daily, metformin 500 mg p.o. b.i.d., metoprolol 12.5 mg p.o. b.i.d., spironolactone 25 mg p.o. daily Patient seen and examined at bedside. Currently has no new complaint, feels better since his admission. Still complains of pruritic rash. Objective vital signs Vital Sign Date Time Temp Pulse Resp B/P (MAP) Pulse Ox O2 Delivery O2 Flow Rate FiO2 07/06/24 10:00 71 19 115/35 (61) 98 07/06/24 08:00 98.1 98.1 07/05/24 19:30 Room Air* 0 21 Total Intake and Output 07/05/24 07/05/24 07/06/24 15:00 23:00 07:00 Intake Total 15363 ml 500 ml Balance 79438 ml 500 ml medications Current Medications Medications Dose Ordered Sig/Epi Route Start Time Stop Time Status Last Admin Dose Admin Acetaminophen 650 mg Q6HP PRN PO 07/05/24 21:15 Vancomycin HCl 0 ml @ 0 mls/hr UD IV 07/05/24 21:15 Cefepime HCl 50 ml @ 12.5 mls/hr Q12HR IV 07/05/24 22:00 07/06/24 09:37 12.5 MLS/HR Atorvastatin Calcium 40 mg DAILY PO 07/06/24 10:00 07/06/24 09:57 40 MG Polyethylene Glycol 17 gm DAILYPRN PRN PO 07/06/24 06:45 07/06/24 09:38 17 GM Sodium Chloride 1,000 ml @ 100 mls/hr Q10H IV 07/06/24 06:45 07/06/24 08:21 100 MLS/HR Pantoprazole Sodium 40 mg DAILY IV 07/06/24 10:00 07/06/24 09:58 40 MG Vancomycin HCl 150 ml @ 150 mls/hr Q18H IV 07/06/24 15:00 Amiodarone HCl 200 mg BID PO 07/06/24 22:00 UNV Furosemide 40 mg DAILY PO 07/07/24 10:00 UNV Examination Patient lying in bed, in no acute distress General: Lucid, afebrile, mucosae are dry Cardiovascular: Normal S1 and S2. No murmurs, gallops or rubs Respiratory: Normal ventilation mechanics. Bilateral rhonchus predominantly on right side. Abdomen: Soft, nontender, no organomegaly, normal bowel sounds MSK/skin: Mobilizes 4 limbs. Skin is dry and warm. Dark Macular rash on torso and palm of hands, excoriations as well. Neurological: Oriented in 3 spheres. No motor no sensitive deficits. Pupils are isocoric and reactive laboratory and microbiology Laboratory Tests 07/06/24 06:17 Test 07/06/24 06:17 Range/Units Serum Glucose 110 H 74-106 mg/dL Problem List/Assessment/Plan Problem List/Assessment/Plan # Metabolic encephalopathy probably secondary to sepsis Completed head CT which ruled out acute intracranial hemorrhage # Sepsis secondary to probable pneumonia Patient currently on empiric IV antibiotic (cefepime and vancomycin) Required IV fluids Ordered panculture (blood, sputum and urine), pending # Probable Pneumonia Gram-positive Gram-negative Completed chest x-ray which showed bilateral perihilar infiltrates predominantly in lower lobes. Chest x-ray completed: Multifocal masslike airspace opacities in left upper lobe, lingula and right lower lobe are suspicious for multifocal infection. Intermittent spiculated nodule in left upper lobe which measures 0.8 cm. 1.9 cm opacity in the medial right lung abdomen is nonspecific (likely scarring). Recommend repeat image after acute disease is resolved. Patient currently on empiric IV antibiotic (cefepime and vancomycin) # LOREN hemodynamically mediated Responding to IV fluids # Microcytic anemia with iron deficiency Probably secondary to history of alcohol abuse Currently on IV iron # Thrombocytopenia Probably secondary to history of alcohol abuse # Diabetes - controlled (hemoglobin A1c 6.7% Currently on insulin sliding scale # Hypertension Patient currently with soft blood pressures due to sepsis. Have discontinued all home medication. We will continue medication once acute illness is resolved # Chronic systolic heart failure (HFrEF, LVEF 40%) Discontinue home medication due to sepsis. Patient is requiring IV fluids at this moment # Current tobacco use Counseled on cessation History of ethanol abuse Per patient he has not drinking alcohol currently # AAA - status post endoprosthesis repair Completed abdomen and pelvis CT which showed) and correct location, study limited to two absences IV contrast Goals of care discussed with patient for over 18 minutes: Full code status. Patient does not want me to talk to any family member member Discussed plan with Dr. Claros, patient and nurses: We will continue with IV fluids, IV antibiotics and IV iron. Pending culture results. Patient has poor prognosis due to multiple comorbidities. Patient is unstable for transfer at this point due to sepsis. Plan discussed with: Patient, Other (Nurses) My Orders My Orders Orders - DEE WASHBURN RESIDENT Procedure Category Date Status Time Polyethylene Glycol PHA 07/06/24 In Process 17g Powder (Miralax 06:45 Sodium Chloride 0.9% PHA 07/06/24 In Process 06:45 Sequential ADRIANA 07/06/24 In Process Compression Device 08:01 Pantoprazole PHA 07/06/24 In Process (Protonix) 10:00 Stool Occult Blood LAB 07/06/24 Logged 08:[address] 07/06/24 Taken 11:33 Amiodarone Tablet PHA 07/06/24 Logged (Cordarone Tablet) 22:00 Furosemide Tablet PHA 07/07/24 Logged (Lasix Tablet) 10:00 Date of Service: Jul 06, 2024 Billing Provider: TORY CLAROS MD Common Visit Codes: [id number] INP/OBS CARE(HIGH) DEE WASHBURN RESIDENT Jul 06, 2024 12:10 TORY CLAROS MD Jul 07, 2024 16:21
--- NOTE | 2024-07-06 13:21 | DVH ---
CT Chest without intravenous contrast INDICATION: PNA, evaluate nodules TECHNIQUE: Multidetector spiral CT of the chest was performed from the lung apices to the upper abdom en. Axial, coronal and sagittal multiplanar reformats were performed. Radiation Dose : 1. Chest: CTDI volume is 4.78 mGy. Dose-length product is 176.81 mGy*cm The dose indicators for CT are the volume Computed Tomography (CT) Dose Index (CTDIvol) and the Dose Length Product (DLP), and are measured in units of mGy and mGy-cm, respectively. These indicators are not patient dose, but values generated from the CT scanner acquisition factors. The report includes radiation exposure data for exposures received during this examination. Comparison: None Findings: Lower neck: Normal thyroid. Lungs: Moderate centrilobular emphysema. Spiculated nodule left upper lobe (image 17/63) measures 0.8 cm. 1.9 cm opacity in the medial right lung apex most likely represent scarring. Masslike airspace opacities are present in the left upper lobe, lingula and right lower lobe. Heart/Vascular Structures: Cardiomegaly. Coronary artery calcifications. Vascular calcifications of t he aorta. Lymph Nodes: No adenopathy Pleura: Trace bilateral pleural effusions. Musculoskeletal: No acute osseous abnormality. Soft tissues: Normal. Upper abdomen: Distended stomach. Partially imaged thoracic abdominal aorta stent. IMPRESSION: Multifocal masslike airspace opacities in the left upper lobe, lingula and right lower lobe are suspi cious for multifocal infection. Indeterminate spiculated nodule in the left upper lobe measures 0.8 cm. 1.9 cm opacity in the medial right lung apex is nonspecific but most likely represent scarring. Recommend repeat imaging after treatment to ensure complete resolution. Radiation optimization: All CT scans at this facility use at least one of these dose optimization augie hniques: automated exposure control mA and/or kV adjustment per patient size (includes targeted exam s where dose is matched to clinical indication) or iterative reconstruction.
--- NOTE | 2024-07-06 15:04 | DVHSR ---
APPROVED REPORT EXAM: Two-dimensional and M-mode echocardiogram with Doppler and color Doppler. Blood Pressure: 112/41 mmHg INDICATION CHF RISK FACTORS Height: 64, Weight: 130 DIMENSIONS LVDd5.6 (3.8-5.7cm)LA (2D)4.7 (1.9-4.0cm)Aortic Root3.1 (2.0-3.7cm) LVDs4.5 (2.5-4.0cm)LA (MM) (1.9-4.0cm)Aortic Cusp Exc1.3 (1.5-2.0cm) EF (%) 40.0 (55-70%)Rt. Atrium4.0 (1.9-4.0cm)Asc. Aorta cm Mitral Valve MitralMitral Stenosis E wave0.88m/sMV Mean GR.mmHg A wave0.97m/sMV Peak GR.113mmHg E/A ratio0.92D MVAcm2 DECEL [id number] 1/2 Timems Aortic Valve Aortic ValveAortic Stenosis V10.76m/Milvia Mean GR.3mmHg V21.24m/Milvia Peak GR.6mmHg LVOT Diameter2.1 (1.8-2.4cm)Doppler AVA2.12cm2 AI P 1/2 Lktx030.72ms Tricuspid Valve TR Velocity2.78m/s [id number] Other Information Technically limited study due to patient laying flat and moving during exam. Conclusion lvef 40% by visual estimate moderate LV dysfunction LV dilated moderate mitral regurg , posteriorly directed moderate tricuspid regurg
[2024-07-06] MEDS: VANCOMYCIN 750mg/150ml 150 ML IV SCH (15:20)
[2024-07-06 20:03] VITALS: PULSE 81; RESP 16; O2SAT 94
[2024-07-06] MEDS: AMIODARONE HCL 200 MG TAB PO SCH (21:59)
[2024-07-07 02:48] VITALS: BP 120/57; PULSE 70; RESP 18; TEMP 98; O2SAT 100; O2SAT 98
[2024-07-07 04:54] VITALS: BP 133/66; PULSE 69; RESP 18; TEMP 98.7; O2SAT 100
[2024-07-07 08:00] VITALS: PULSE 69; PULSE 78; RESP 18; O2SAT 100
[2024-07-07 08:39] VITALS: BP 137/52; PULSE 83; RESP 20; TEMP 98.6; O2SAT 100
[2024-07-07] MEDS: FUROSEMIDE 40 MG TAB PO SCH (10:24)
[2024-07-07 10:29] LABS: Basophils # (auto) 0 10 ^3/uL (0-0.2); Eosinophils # (auto) 0.3 10 ^3/uL (0-0.8); Hemoglobin 7.8 g/dL (13.5-17.5); Lymphocytes # (auto) 0.8 10 ^3/uL (0.4-5.4); Monocytes # (auto) 0.1 10 ^3/uL (0-1.3)
[2024-07-07 10:32] LABS: Basophils % (auto) 0.2 % (0.0-2.0); Eosinophils % (auto) 2.8 % (0.0-7.0); Hematocrit 24.4 % (41.0-53.0); Lymphocytes % (auto) 8.4 % (10.0-50.0); Mean Corpuscular Hemoglobin 33.2 pg (28.0-32.0); Mean Corpuscular Hgb Conc. 31.9 g/dL (32.0-36.0); Mean Corpuscular Volume 103.9 fL (80.0-100.0); Monocytes % (auto) 1.1 % (0.0-12.0); Neutrophils % (auto) 87.5 % (37.0-80.0); Platelet Count (auto) 66 10^3/uL (140-450); Red Blood Cells 2.34 10^6/uL (4.5-5.90); Red Cell Distribution Width 15.8 % (11.8-14.3); White Blood Cell 9.1 10^3/uL (4.4-10.8)
--- NOTE | 2024-07-07 10:47 | ECG ---
[facility] Test Date: 2024-07-06 Test Time: 11:12:02 Pat Name: GIUSEPPE LARIOS Department: ED Room: [facility]0T A Gender: M Potato Peeler: FRANCISCO : 1945 Requested By: CARIE WHELAN Order Number: [id number] Reading MD: Michele Steiner Measurements Intervals [place] Rate: 74 P: 75 MS: 138 QRS: 23 QRSD: 107 T: 231 QT: 410 QTc: 455 Interpretive Statements Sinus rhythm Low voltage, extremity leads Borderline repolarization abnormality Electronically Signed On 07-11-2024 21:41:29 PST by Michele Steiner Please click the below link to view image of tracing.
[2024-07-07 10:53] LABS: Anion Gap 6 (5-15); Carbon Dioxide 26 mmol/L (20-31)
[2024-07-07 10:54] LABS: Chloride 104 mmol/L (98-107); Potassium 4.2 mmol/L (3.5-5.1); Sodium 136 mmol/L (136-145)
[2024-07-07 10:59] LABS: BUN/Creatinine Ratio 15.3 (10.0-20.0); Blood Urea Nitrogen 18 mg/dL (9-23)
[2024-07-07 11:00] LABS: Magnesium 1.9 mg/dL (1.6-2.6)
[2024-07-07 11:01] LABS: Glucose 158 mg/dL (74-106); Phosphorus 2.7 mg/dL (2.4-5.1)
[2024-07-07 11:07] LABS: Anisocytosis Slight; Macrocytosis Slight; Tear Drop Cells FEW
[2024-07-07 11:08] LABS: Large Platelets FEW; Platelet Estimate Decrea
[2024-07-07] MEDS: IRON SUCROSE COMPLEX 110 ML IV SCH (13:06)
--- NOTE | 2024-07-07 14:58 | DVHDSRES ---
Discharge Summary Date of Admission Resident Creating Document: DEE WASHBURN RESIDENT Jul 05, 2024 at 21:06 Date of Discharge: Jul 07, 2024 Labs/Diagnostic Data: Laboratory Results Test 07/07/24 09:55 07/06/24 19:42 07/06/24 06:17 07/06/24 01:25 White Blood Count 9.1 10^3/uL (4.4-10.8) Red Blood Count 2.34 10^6/uL (4.5-5.90) Hemoglobin 7.8 g/dL (13.5-17.5) Hematocrit 24.4 % (41.0-53.0) Mean Corpuscular Volume 103.9 fL (80.0-100.0) Mean Corpuscular Hemoglobin 33.2 pg (28.0-32.0) Mean Corpuscular Hemoglobin Concent 31.9 g/dL (32.0-36.0) Red Cell Distribution Width 15.8 % (11.8-14.3) Platelet Count 66 10^3/uL (140-450) Mean Platelet Volume 12.4 fL (6.9-10.8) Neutrophils (%) (Auto) 87.5 % (37.0-80.0) Lymphocytes (%) (Auto) 8.4 % (10.0-50.0) Monocytes (%) (Auto) 1.1 % (0.0-12.0) Eosinophils (%) (Auto) 2.8 % (0.0-7.0) Basophils (%) (Auto) 0.2 % (0.0-2.0) Neutrophils # (Auto) 8.0 10 ^3/uL (1.6-8.6) Lymphocytes # (Auto) 0.8 10 ^3/uL (0.4-5.4) Monocytes # (Auto) 0.1 10 ^3/uL (0-1.3) Eosinophils # (Auto) 0.3 10 ^3/uL (0-0.8) Basophils # (Auto) 0 10 ^3/uL (0-0.2) Nucleated Red Blood Cells 0.0 % Platelet Estimate Decrea Large Platelets Few Anisocytosis (manual) Slight Macrocytosis Slight Tear Drop Cells Few Schistocytes Few Sodium Level 136 mmol/L (136-145) Potassium Level 4.2 mmol/L (3.5-5.1) Chloride Level 104 mmol/L (98-107) Carbon Dioxide Level 26 mmol/L (20-31) Anion Gap 6 (5-15) Blood Urea Nitrogen 18 mg/dL (9-23) Creatinine 1.18 mg/dL (0.700-1.30) Glomerular Filtration Rate Calc 63 mL/min (>90) BUN/Creatinine Ratio 15.3 (10.0-20.0) Serum Glucose 158 mg/dL (74-106) Calcium Level 9.0 mg/dL (8.7-10.4) Phosphorus Level 2.7 mg/dL (2.4-5.1) Magnesium Level 1.9 mg/dL (1.6-2.6) Prothrombin Time 10.9 sec (9.3-11.8) Prothrombin Time INR 1.03 (0.9-1.15) Activated Partial Thromboplast Time 29.1 SEC (24.5-34.5) Iron Level 32 ug/dL (65-175) Total Iron Binding Capacity 202 ug/dL (250-425) Percent Iron Saturation 15.8 % (20-55) Ferritin 80.3 ng/mL (22-322) B-Type Natriuretic Peptide 258.02 pg/mL (0-100) Vitamin B12 Level 516 pg/mL (211-911) Vitamin D 25-Hydroxy 35.3 ng/mL (30.0-100) Folic Acid 12.62 ng/mL (>5.38) Thyroid Stimulating Hormone (TSH) 0.45 uIU/mL (0.55-4.78) Random Vancomycin Level 13.5 ug/mL (5-10) Plasma/Serum Blood Alcohol < 3.0 mg/dL (<10) Urine Color Light-yellow (Yellow) Urine Clarity Clear (Clear) Urine pH 6.0 (5.0-9.0) Urine Specific [place] 1.018 (1.001-1.035) Urine Protein Trace (Negative) Urine Ketones Negative (Negative) Urine Blood 2+ /uL (Negative) Urine Nitrite Negative (Negative) Urine Bilirubin Negative (Negative) Urine Urobilinogen Normal mg/dL (Negative) Urine Leukocyte Esterase 3+ /uL (Negative) Urine RBC 15 /hpf (0 - 3) Urine Microscopic WBC 4 /HPF (0-3) Urine Squamous Epithelial Cells Few /hpf (<5) Urine Bacteria None seen /hpf (None Seen) Urine Glucose Normal mg/dL (Normal) Urine Opiates Screen Neg (NEGATIVE) Urine Fentanyl Screen Neg (NEGATIVE) Urine Barbiturates Screen Neg (NEGATIVE) Urine Phencyclidine Screen Neg (NEGATIVE) Urine Amphetamines Screen Neg (NEGATIVE) Urine Benzodiazepines Screen Neg (NEGATIVE) Urine Cocaine Screen Neg (NEGATIVE) Urine Cannabinoids Screen Neg (NEGATIVE) Influenza Type A Antigen Negative (Negative) Influenza Type B Antigen Negative (Negative) SARS-CoV-2 Antigen (Rapid) Negative (NEGATIVE) Test 07/05/24 20:25 07/05/24 14:50 07/05/24 14:13 Ammonia < 10 umol/L (11-32) Triglycerides Level 70 mg/dL (< 150) Cholesterol Level 78 mg/dL (< 200) LDL Cholesterol 40 mg/dL (< 100) HDL Cholesterol 23 mg/dL (40-59) Differential Total Cells Counted 100.0 (100) Neutrophils % (Manual) 91 (37.0-80.0) Band Neutrophils % (Manual) 2 Lymphocytes % (Manual) 4 (10.0-50.0) Monocytes % (Manual) 3 (0-12) Eosinophils % (Manual) 0 (0-7) Basophils % (Manual) 0 (0.0-2.0) Metamyelocytes % (manual) 0 Myelocytes % (Manual) 0 Promyelocytes % (Manual) 0 Blast Cells % (Manual) 0 Reactive Lymphocytes 0 Hemoglobin A1c 6.7 % A1C (<5.7) Lactic Acid Level 1.7 mmol/L (0.4-2.0) Total Bilirubin 0.3 mg/dL (0.2-1.0) Aspartate Amino Transferase (AST) 9 U/L (13-40) Alanine Aminotransferase (ALT) < 9 U/L (7-40) Alkaline Phosphatase 68 U/L (46-116) Troponin I High Sensitivity 9 ng/L (</=54) Total Protein 6.9 g/dL (5.7-8.2) Albumin 3.5 g/dL (3.2-4.8) POC Glucose 134 mg/dl (70-106) Other Laboratory Tests 07/07/24 09:55 Brief Hx & Hospital Course: Ant Anthony is a 79-year-old male patient who presents to the ED chief complaint of generalized weakness, dyspnea in functional class III associated with productive cough with minimal yellow sputum. He also complained of epistaxis for 3 days which was self limiting one day before his admission. Patient reports pruritic rash which started 3 weeks ago after gardening, he mentions ex- also presented this rash, evaluated by a hazmat technician at [facility] who said it was an allergic reaction. He does complain of infrequent blood in stool. Denies palpitations, chest pain, syncope, nausea, vomiting, diarrhea, recent travel and motor or sensitive deficits. Past medical history: hypertension, type 2 diabetes, dyslipidemia, S/P AAA repair, bilateral hearing impairment, macrocytic anemia and thrombocytopenia with iron-deficiency probably secondary to alcohol abuse Surgical history: AAA repair. 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 Current smoker (40 pack history of smoking). Per EMR alcohol abuse. He denies current alcohol and other drug abuse Allergies: Denies Home medication: Amiodarone 200 mg p.o. b.i.d., atorvastatin 40 mg p.o. daily, empagliflozin 10 mg p.o. daily, furosemide 40 mg p.o. daily, glipizide 10 mg p.o. daily, lisinopril 10 mg p.o. daily, metformin 500 mg p.o. b.i.d., metoprolol 12.5 mg p.o. b.i.d., spironolactone 25 mg p.o. daily Brief hospital course metabolic encephalopathy probably secondary to sepsis due to pneumonia (Gram-negative/Gram-positive bacteria) associated with LOREN, responding to empiric IV antibiotics (cefepime and vancomycin), IV fluids, discontinuing home medication for HFrEF and oxygen therapy (maximum NC at 2 L/min). Jung cultures negative at the moment. Completed head CT which ruled out acute intracranial hemorrhage. Chest CT was completed and showed multifocal mass like airspace opacities in left upper lobe, lingula and right lower lobe which is suspicious for multifocal infection brief, internal indeterminate spiculated nodule in left upper lobe which measures 0.8 cm, 1.9 cm opacity in the middle right lung (likely scarring), recommend repeat image after acute processes resolved. Probable cause of macrocytic anemia and thrombocytosis due to alcohol abuse, iron panel showed iron deficiency, currently on IV iron. Patient hemodynamically stable, without requirement of oxygen therapy, in condition to be transferred to acute facility ([facility]). Was granted under optimal medical therapy (patient is pending GDM T for HFrEF, we will be added before being discharged from other center), gave her advice on healthy lifestyle habits, and follow up per [facility] staff once patient is ready to be discharged. DIAGNOSIS # Metabolic encephalopathy probably secondary to sepsis # Sepsis secondary to probable pneumonia # Probable Pneumonia Gram-positive Gram-negative # LOREN hemodynamically mediated - Resolved # Macrocytic anemia with iron deficiency # Thrombocytopenia # Diabetes - controlled (hemoglobin A1c 6.7% # Hypertension # Chronic systolic heart failure (HFrEF, LVEF 40%) # Current tobacco use # History of ethanol abuse # AAA - status post endoprosthesis repair Examination Patient lying in bed, in no acute distress General: Lucid, afebrile, mucosae are dry Cardiovascular: Normal S1 and S2. No murmurs, gallops or rubs Respiratory: Normal ventilation mechanics. Bilateral rhonchus predominantly on right side. Abdomen: Soft, nontender, no organomegaly, normal bowel sounds MSK/skin: Mobilizes 4 limbs. Skin is dry and warm. Dark Macular rash on torso and palm of hands, excoriations as well. Neurological: Oriented in 3 spheres. No motor no sensitive deficits. Pupils are isocoric and reactive laboratory and microbiology Goals of care discussed with patient for over 18 minutes: Full code status. Ex- at bedside, have updated her as well with patients consent Discussed plan with Dr. Claros, patient and nurses. Patient is stable for transfer Operations or Procedures CHEST RADIOGRAPH Indication: sob Technique: Single frontal view of the chest was obtained Comparison: XY CHEST PORTABLE on DOS: 07/21/23 FINDINGS: Lines and Tubes: None Lungs: Bilateral perihilar infiltrates with involving the lower lobes right greater than left. Pleura: No effusion. No pneumothorax. Cardiomediastinal contours: Unremarkable Bones: No acute osseous abnormality. IMPRESSION: 1. Bilateral perihilar infiltrates with airspace disease in the lower lobes right worse than left. ATED BY: ALBERTO DAVEY Jr., DO DICTATED DATE/TIME: 07/05/24 1500 EXAM: CT Abdomen and Pelvis Without Intravenous Contrast CLINICAL INDICATION: colitis TECHNIQUE: Axial computed tomography images of the abdomen and pelvis without intravenous contrast. This CT exam was performed using one or more of the following dose reduction techniques: automated exposure control, adjustment of the mA and/or kV according to patient size, and/or use of iterative reconstruction technique. CONTRAST: RADIATION DOSE: CTDIvol = 5.07 mGy, DLP = 249.58 mGy-cm COMPARISON: None FINDINGS: LUNG BASES: Partially visualized lung emphysema. No consolidation. ABDOMEN: LIVER: Unremarkable. GALLBLADDER AND BILE DUCTS: Unremarkable. No calcified stones. No ductal dilation. PANCREAS: Unremarkable. No ductal dilation. SPLEEN: Unremarkable. No splenomegaly. ADRENALS: Unremarkable. No mass. KIDNEYS AND URETERS: Unremarkable. No obstructing stones. No hydronephrosis. STOMACH AND BOWEL: Fecal retention in the colon consistent with constipation. No significant inflammation of the colon to suggest colitis. However, evaluation is suboptimal secondary to motion artifacts. No obstruction. PELVIS: APPENDIX: No findings to suggest acute appendicitis. BLADDER: Unremarkable. No stones. REPRODUCTIVE: Unremarkable as visualized. ABDOMEN and PELVIS: INTRAPERITONEAL SPACE: Unremarkable. No free air. No significant fluid collection. BONES/JOINTS: No acute fracture. No dislocation. SOFT TISSUES: Unremarkable. VASCULATURE: Infrarenal aortic aneurysm with indwelling stent extending to the iliacs, bilaterally. Further evaluation is limited without IV contrast administration. Scattered calcified atherosclerotic disease of aorta. LYMPH NODES: Unremarkable. No enlarged lymph nodes. OTHER FINDINGS: . . . . IMPRESSION: 1. Infrarenal aortic aneurysm with indwelling stent extending to the iliacs, bilaterally. Further evaluation is limited without IV contrast administration. 2. Fecal retention in the colon consistent with constipation. 3. No significant inflammation of the colon to suggest colitis. However, evaluation is suboptimal secondary to motion artifacts. ATED BY: MAURO MENDEZ MD DICTATED DATE/TIME: 07/05/24 3319 EXAM: CT HEAD WITHOUT CONTRAST INDICATION: altered TECHNIQUE: CT of the head without intravenous contrast. Radiation Dose Information: CT Dose: CTDI volume is 55.16 mGy. Dose-length product is 976.73 mGy*cm The dose indicators for CT are the volume Computed Tomography (CT) Dose Index (CTDIvol) and the Dose Length Product (DLP), and are measured in units of mGy and mGy-cm, respectively. These indicators are not patient dose, but values generated from the CT scanner acquisition factors. The report includes radiation exposure data for exposures received during this examination. COMPARISON: CT HEAD WITHOUT CONTRAST on DOS: 07/21/23 FINDINGS: There is no evidence of acute intracranial hemorrhage, extra-axial collection, mass effect, midline shift, herniation or hydrocephalus. The ventricles, sulci and cisterns are age appropriate. The early-white differentiation is intact. Patchy periventricular and subcortical white matter hypoattenuation is nonspecific but may be related to small vessel ischemic disease. Mucosal thickening of the right maxillary sinus and mastoid air cells are clear. The surrounding soft tissues and osseous structures are unremarkable. IMPRESSION: 1. No acute intracranial hemorrhage 2. No CT findings of territorial ischemia. ATED BY: ALBERTO DAVEY Jr., DO DICTATED DATE/TIME: 07/05/[address] Chest without intravenous contrast INDICATION: PNA, evaluate nodules TECHNIQUE: Multidetector spiral CT of the chest was performed from the lung apices to the upper abdomen. Axial, coronal and sagittal multiplanar reformats were performed. Radiation Dose : 1. Chest: CTDI volume is 4.78 mGy. Dose-length product is 176.81 mGy*cm The dose indicators for CT are the volume Computed Tomography (CT) Dose Index (CTDIvol) and the Dose Length Product (DLP), and are measured in units of mGy and mGy-cm, respectively. These indicators are not patient dose, but values generated from the CT scanner acquisition factors. The report includes radiation exposure data for exposures received during this examination. Comparison: None Findings: Lower neck: Normal thyroid. Lungs: Moderate centrilobular emphysema. Spiculated nodule left upper lobe (image 17/63) measures 0.8 cm. 1.9 cm opacity in the medial right lung apex most likely represent scarring. Masslike airspace opacities are present in the left upper lobe, lingula and right lower lobe. Heart/Vascular Structures: Cardiomegaly. Coronary artery calcifications. Vascular calcifications of the aorta. Lymph Nodes: No adenopathy Pleura: Trace bilateral pleural effusions. Musculoskeletal: No acute osseous abnormality. Soft tissues: Normal. Upper abdomen: Distended stomach. Partially imaged thoracic abdominal aorta stent. IMPRESSION: Multifocal masslike airspace opacities in the left upper lobe, lingula and right lower lobe are suspicious for multifocal infection. Indeterminate spiculated nodule in the left upper lobe measures 0.8 cm. 1.9 cm opacity in the medial right lung apex is nonspecific but most likely represent scarring. Recommend repeat imaging after treatment to ensure complete resolution. Radiation optimization: All CT scans at this facility use at least one of these dose optimization techniques: automated exposure control mA and/or kV adjustment per patient size (includes targeted exams where dose is matched to clinical indication) or iterative reconstruction. ATED BY: LUIS FERNANDO KANG MD DICTATED DATE/TIME: 07/06/24 1319 Condition at Discharge: Fair Final Diagnosis/Problems List # Metabolic encephalopathy probably secondary to sepsis # Sepsis secondary to probable pneumonia # Probable Pneumonia Gram-positive Gram-negative # LOREN hemodynamically mediated - Resolved # Macrocytic anemia with iron deficiency # Thrombocytopenia # Diabetes - controlled (hemoglobin A1c 6.7% # Hypertension # Chronic systolic heart failure (HFrEF, LVEF 40%) # Current tobacco use # History of ethanol abuse # AAA - status post endoprosthesis repair Discharge Disposition: Acute Care Facility SNF Discharge Will this Physician continue t: No Discharge Instruct/Medications Diet: Cardiac 2g Na,low cholest Activity: No Restrictions, As Tolerated Follow Up/Referral: For [facility] Medications: Per EMR Discharge Statement: "Patient was advised to return to the ER or call 911 if any headaches, dizziness, shortness of breath, chest pain, abdominal pain, bleeding, fevers, or worsening of medical condition. Patient was counseled about treatment plan, medications, possible side effects, patientverbalized understanding. All questions were answered to the best of my ability. This discharge took greater then 30 minutes in planning, reviewing documentation, counseling the patient, and discussing with other team members." ASSESSMENT ASSESSMENT Assessment Sepsis secondary to pneumonia Gram-positive/Gram-negative bacteria Date of Service: Jul 07, 2024 Billing Provider: TORY CLAROS MD Common Visit Codes: 06718-QKH/OBS DISCH DAY >30min DEE WASHBURN Jul 07, 2024 14:58 TORY CLAROS MD Jul 13, 2024 13:56
[2024-07-07 16:33] LABS: Free T4 (Free Thyroxine) 0.94 ng/dL (0.89-1.76); T3 Total 0.68 ng/mL (0.60-1.81)
[2024-07-07 16:47] VITALS: BP 114/55; PULSE 71; RESP 16; TEMP 98; O2SAT 100
[2024-07-07] MEDS: guaiFENesin 200 MG/10 ML UD GT PRN (17:10)
[2024-07-07] MEDS: FOLIC ACID 1 MG TAB PO ONE (17:10)
[2024-07-07] MEDS: diphenhdrAMINE HCL 25 MG CAP PO PRN (17:10)
[2024-07-07] MEDS: CYANOCOBALAMIN 500 MCG TAB PO ONE (17:10)
[2024-07-07 20:00] VITALS: PULSE 69; RESP 18; O2SAT 100
[2024-07-08 07:07] LABS: RPR Non Reactive (Non Reactive)
[2024-07-08] MEDS ORDERED: CYANOCOBALAMIN 500 MCG TAB PO SCH (10:00)
[2024-07-08] MEDS ORDERED: FOLIC ACID 1 MG TAB PO SCH (10:00)
[2024-07-10 11:41] LABS: Hepatitis A Ab IgM Negative; Hepatitis B Core IgM Negative (Negative); Hepatitis B Surface Antigen Negative (Negative); Hepatitis C Antibody Negative (Negative)
== END 2024-07-07 23:00 | disposition short-term general hospital (02) | DRG 871 ==
LOC: ER 13:44 → EEVIPCON 13:44 → OVERFLOW 21:06 → TELE-WESTW 07-07 02:47
PROVIDERS: ADMIT Student in an Organized Health Care Education/Training Program; ATTEND Student in an Organized Health Care Education/Training Program
DX: A41.59 Other Gram-negative sepsis (principal); G93.41 Metabolic encephalopathy; J15.69 Pneumonia due to other Gram-negative bacteria; J96.01 Acute respiratory failure with hypoxia; J15.9 Unspecified bacterial pneumonia; I13.0 Hypertensive heart and chronic kidney disease with heart failure and stage 1 through stage 4 chronic kidney disease, or unspecified chronic kidney disease; I50.22 Chronic systolic (congestive) heart failure; N17.9 Acute kidney failure, unspecified; Z20.822 Contact with and (suspected) exposure to COVID-19; E78.5 Hyperlipidemia, unspecified; N18.32 Chronic kidney disease, stage 3b; E11.22 Type 2 diabetes mellitus with diabetic chronic kidney disease; D69.6 Thrombocytopenia, unspecified; D50.9 Iron deficiency anemia, unspecified; F17.200 Nicotine dependence, unspecified, uncomplicated; Z79.4 Long term (current) use of insulin; Z79.899 Other long term (current) drug therapy
CPT/HCPCS: 36415; 70450; 71045; 71250; 74176; 80048; 80053; 80061; 80074; 80202; 80307; 80320; 81001; 82140; 82306; 82607; 82728; 82746; 82962; 83036; 83540; 83550; 83605; 83735; 83880; 84100; 84439; 84443; 84480; 84484; 85007; 85025; 85027; 85610; 85730; 86592; 87040; 87086; 87426; 87804; 93005; 93306; 96365; 96367; 99291; 99292; G0378; J1756; J2470; J2543; J3490

== ENCOUNTER 2024-10-30 12:51 | Emergency (ER) | payer OTHER ==
[~2024-10-30] VITALS: Ht 170.2 cm; Wt 66.0 kg
[2024-10-30 13:36] LABS: Chloride 103 mmol/L (98-107); Hematocrit 29.3 % (41.0-53.0); Hemoglobin 9.4 g/dL (13.5-17.5); Mean Corpuscular Hemoglobin 31.2 pg (28.0-32.0); Mean Corpuscular Hgb Conc. 32.1 g/dL (32.0-36.0); Mean Corpuscular Volume 97.1 fL (80.0-100.0); Platelet Count (auto) 85 10^3/uL (140-450); Potassium 3.7 mmol/L (3.5-5.1); Red Blood Cells 3.02 10^6/uL (4.5-5.90); Sodium 137 mmol/L (136-145)
[2024-10-30 13:37] LABS: Anion Gap 7 (5-15); Carbon Dioxide 27 mmol/L (20-31)
[2024-10-30 13:38] LABS: Calcium 8.5 mg/dL (8.7-10.4)
[2024-10-30 13:39] LABS: Band Neutrophils % (manual) 0; Basophils % (manual) 0 (0.0-2.0); Blast Cells 0; Metamyelocytes % 0; Myelocytes % 0; Promyelocytes % 0; Reactive Lymphocytes 0
[2024-10-30 13:42] LABS: BUN/Creatinine Ratio 11.9 (10.0-20.0); Blood Urea Nitrogen 16 mg/dL (9-23)
[2024-10-30 13:51] LABS: Glucose 188 mg/dL (74-106)
[2024-10-30 14:03] LABS: Eosinophils % (manual) 2 (0-7); Large Platelets FEW; Lymphocytes % (manual) 10 (10.0-50.0); Monocytes % (manual) 2 (0-12); Platelet Estimate Decrea
--- NOTE | 2024-10-30 14:10 | ED.PDOC ---
History of Present Illness HPI Comments 79-year-old male with PMHx Dementia brought in by EMS presents with a chief complaint of lightheadedness, generalized weakness. Patient was found wandering inside an auto parts store with an unsteady gait. Patient fell onto his left side, but did not lose consciousness. Patient stated to EMS that he felt weak and lightheaded. Patient is a poor historian secondary to Dementia diagnosis. Chief Complaint: Syncope Time Seen by MD: 14:08 Primary Care Provider: UNKNOWN Reviewed Notes: Medications, Allergies Allergies: Coded Allergies: NO KNOWN ALLERGIES (Unverified , 07/21/23) Home Meds Active Scripts Metoprolol Tartrate (Lopressor) 25 Mg Tb, 12.5 MG PO BID, #30 TAB 3 Refills Prov:CHALINO WAN MD 07/25/23 Spironolactone (Aldactone) 25 Mg Tab, 25 MG PO DAILY, #30 TAB Prov:CHALINO WAN MD 07/25/23 Lisinopril (Lisinopril) 20 Mg Tab, 0.5 TAB PO DAILY, #30 TAB 5 Refills Prov:CHALINO WAN MD 07/25/23 Empagliflozin (Jardiance) 10 Mg Tab, 10 MG PO DAILY, #30 TAB 5 Refills Prov:CHALINO WAN MD 07/25/23 Amiodarone Hcl (Amiodarone Hcl) 200 Mg Tab, 200 MG PO BID, #60 TAB Prov:CHALINO WAN MD 07/25/23 Reported Medications Furosemide (Lasix) 40 Mg Tab, 40 MG PO DAILY, TAB 07/24/23 Glipizide (Glipizide) 10 Mg Tab, 10 MG PO DAILY for 30 Days, MG 07/24/23 Metformin Hydrochloride (Metformin Hcl) 500 Mg Tab, 1000 MG PO DAILY@DINNER for 30 Days, MG 07/24/23 Metformin Hydrochloride (Metformin Hcl) 500 Mg Tab, 500 MG PO DAILY@BREAKFAST for 30 Days, MG 07/24/23 Atorvastatin Calcium (ATORVASTATIN CALCIUM) 40 Mg Tab, 1 TAB PO DAILY, #30 TAB 5 Refills 07/24/23 Information Source: Emergency Med Personnel Mode of Arrival: EMS Severity: Moderate Timing: Hours Duration: Since onset Prehospital treatment: [employer] Past Medical History PAST MEDICAL HISTORY: Dementia, Pt Confused Surgical History: Pt Confused Family History Family History: Pt Confused Social History Smoker: Pt Confused Alcohol: Pt Confused Drugs: Pt Confused Lives In: Pt Confused Constitutional: reports: weakness; denies: chills, diaphoresis, fatigue, fever, malaise, sweats, others EENTM: denies: blurred vision, double vision, ear bleeding, ear discharge, ear drainage, ear pain, ear ringing, eye pain, eye redness, hearing loss, mouth pain, mouth swelling, nasal discharge, nose bleeding, nose congestion, nose pain, photophobia, tearing, throat pain, throat swelling, voice changes, others Respiratory: denies: cough, hemoptysis, orthopnea, SOB at rest, shortness of breath, SOB with excertion, stridor, wheezing, others Cardiovascular: reports: lightheadedness; denies: chest pain, dizzy spells, diaphoresis, Dyspnea on exertion, edema, irregular heart beat, left arm pain, palpitations, PND, syncope, others Gastrointestinal: denies: abdomen distended, abdominal pain, blood streaked bowels, constipated, diarrhea, dysphagia, difficulty swallowing, hematemesis, melena, nausea, poor appetite, poor fluid intake, rectal bleeding, rectal pain, vomiting, others Genitourinary: denies: burning, dysuria, flank pain, frequency, hematuria, incontinence, penile discharge, penile sore, pain, testicle pain, testicle swelling, urgency, others Neurological: denies: dizziness, fainting, headache, left sided numbness, left sided weakness, numbness, paresthesia, pre-existing deficit, right sided numbness, right sided weakness, seizure, speech problems, tingling, tremors, weakness, others Musculoskeletal: denies: back pain, gout, joint pain, joint swelling, muscle pain, muscle stiffness, neck pain, others Integumetry: denies: bruises, change in color, change in hair/nails, dryness, laceration, lesions, lumps, rash, wounds, others Allergic/Immunocompromised: denies: Difficulty Healing, Frequent Infections, Hives, Itching, others Hematologic/Lymphatic: denies: anemia, blood clots, easy bleeding, easy bruising, swollen glands, others Endocrine: denies: excessive hunger, excessive sweating, excessive thirst, excessive urination, flushing, intolerance to cold, intolerance to heat, unexplained weight gain, unexplained weight loss, others Psychiatric: denies: anxiety, bipolar disorder, depression, hopeless, panic disorder, schizophrenia, sleepless, suicidal, others Unable to Obtain due to: Dementia All Other Systems: Reviewed and Negative Physical Exam General Appearance: No Apparent Distress, Normal HEENT: Normal ENT Inspection, Pharynx Normal, TMs Normal Neck: Full Range of Motion, Non-Tender, Normal, Normal Inspection Respiratory: Chest Non-Tender, Lungs Clear, No Accessory Muscle Use, No Respiratory Distress, Normal Breath Sounds Cardiovascular: No Edema, No JVD, No Murmur, No Gallop, Normal Peripheral Pulses, Regular Rate/Rhythm Breast Exam: Deferred Gastrointestinal: No Organomegaly, Non Tender, No Pulsatile Mass, Normal Bowel Sounds, Soft Genitalia: Deferred Pelvic: Deferred Rectal: Deferred Extremities: No calf tenderness, Normal capillary refill, Normal inspection, Normal range of motion, Non-tender, No pedal edema Musculoskeletal : Apperance: Normal Neurologic: Other (DEMENTIA) Cerebellar Function: Normal Reflexes: Normal Skin: Dry, Normal Color, Warm Lymphatic: No Adenopathy Was a procedure done? Was a procedure done?: No Differential Dx Considerations may include: ACS, CVA, traumatic brain injury, electrolyte abnormality, polysubstance abuse X-Ray, Labs, Meds, VS Vital Signs Date Time Temp Pulse Resp B/P (MAP) Pulse Ox O2 Delivery O2 Flow Rate FiO2 10/30/24 15:12 97.8 78 16 102/69 (80) 94 97.8 10/30/24 15:07 77 10/30/24 13:12 98.6 87 16 127/76 (93) 97 98.6 Lab Test 10/30/24 14:43 10/30/24 13:11 Range/Units Troponin I High Sensitivity 11 11 </=54 ng/L White Blood Count 10.0 4.4-10.8 10^3/uL Red Blood Count 3.02 L 4.5-5.90 10^6/uL Hemoglobin 9.4 L 13.5-17.5 g/dL Hematocrit 29.3 L 41.0-53.0 % Mean Corpuscular Volume 97.1 80.0-100.0 fL Mean Corpuscular Hemoglobin 31.2 28.0-32.0 pg Mean Corpuscular Hemoglobin Concent 32.1 32.0-36.0 g/dL Red Cell Distribution Width 19.0 H 11.8-14.3 % Platelet Count 85 L 140-450 10^3/uL Mean Platelet Volume 11.6 H 6.9-10.8 fL Neutrophils (%) (Auto) 37.0-80.0 % Lymphocytes (%) (Auto) 10.0-50.0 % Monocytes (%) (Auto) 0.0-12.0 % Basophils (%) (Auto) 0.0-2.0 % Neutrophils # (Auto) 1.6-8.6 10 ^3/uL Lymphocytes # (Auto) 0.4-5.4 10 ^3/uL Monocytes # (Auto) 0-1.3 10 ^3/uL Differential Total Cells Counted 100.0 100 Neutrophils % (Manual) 86 H 37.0-80.0 Band Neutrophils % (Manual) 0 Lymphocytes % (Manual) 10 10.0-50.0 Monocytes % (Manual) 2 0-12 Eosinophils % (Manual) 2 0-7 Basophils % (Manual) 0 0.0-2.0 Metamyelocytes % (manual) 0 Myelocytes % (Manual) 0 Promyelocytes % (Manual) 0 Blast Cells % (Manual) 0 Reactive Lymphocytes 0 Platelet Estimate Decrea Large Platelets Few Sodium Level 137 136-145 mmol/L Potassium Level 3.7 3.5-5.1 mmol/L Chloride Level 103 98-107 mmol/L Carbon Dioxide Level 27 20-31 mmol/L Anion Gap 7 5-15 Blood Urea Nitrogen 16 9-23 mg/dL Creatinine 1.35 H 0.700-1.30 mg/dL Glomerular Filtration Rate Calc 53 >90 mL/min BUN/Creatinine Ratio 11.9 10.0-20.0 Serum Glucose 188 H 74-106 mg/dL Calcium Level 8.5 L 8.7-10.4 mg/dL Time of 1ST Reevaluation: 14:38 Reevaluation 1ST: Unchanged Patient Education/Counseling: Diagnosis, Treatment, Need For Follow Up Family Education/Counseling: No Family Present Departure 1 Departure Time of Disposition: 15:22 (Patient with a seborrheic hemorrhage. Discussed the case with the [facility] who accepted the patient has a transfer.) Impression: Primary Impression: Subarachnoid hemorrhage Disposition: 02 SHORT TERM HOSPITAL Condition: Critical Critical Care Note Critical Care Time?: Yes Critical care comment: Subarachnoid hemorrhage Authorized and Performed by: Kalin Bagley MD Total critical care time: Approximately 86 minutes Due to a high probability of clinically significant, life threatening deterioration, the patient required my highest level of preparedness to intervene emergently and I personally spent this critical care time directly and personally managing the patient. This critical care time included obtaining a history; examining the patient; pulse oximetry; ordering and review of studies; arranging urgent treatment with development of a management plan; evaluation of patient's response to treatment; frequent reassessment; and, discussions with other providers. This critical care time was performed to assess and manage the high probability of imminent, life-threatening deterioration that could result in multi-organ failure. It was exclusive of separately billable procedures and treating other patients and teaching time. Please see my other sections and the rest of the note for further information on patient assessment and treatment. Stability Stability form required: No Heart Score Heart Score: Heart Score Response (Comments) Value History N/A 0 EKG N/A 0 Age N/A 0 Risk Factors N/A 0 Troponin N/A 0 Total 0 I personally scribed for KALIN BAGLEY MD ([email or web address]) on 10/30/24 at 14:10. Electronically submitted by Abimael Alberts ([email or web address]). I personally scribed for KALIN BAGLEY MD ([email or web address]) on 10/30/24 at 14:27. Electronically submitted by Abimael Alberts ([email or web address]). KALIN BAGLEY MD Oct 30, 2024 14:10
--- NOTE | 2024-10-30 14:40 | DVH ---
EXAM: XY CHEST PORTABLE HISTORY: near syncope COMPARISON: XY CHEST PORTABLE on DOS: 07/05/24, XY CHEST PORTABLE on DOS: 07/21/23, CT scan of the chest dated 07/06/2024. TECHNIQUE: Portable AP view of the chest was performed. FINDINGS: There is central peribronchial thickening. No pneumothorax, consolidative infiltrates, or pulmonary e akila. Emphysematous changes are better characterized on prior CT scan. The heart is borderline enlarg ed. The aortic arch is calcific. IMPRESSION: 1. Emphysema and reactive airways disease. 2. Atherosclerotic vascular disease.
--- NOTE | 2024-10-30 15:00 | DVH ---
CT HEAD WITHOUT CONTRAST Indication: near syncope EXAM DATE: 10/30/2024 02:12 PM COMPARISON: CT HEAD WITHOUT CONTRAST on DOS: 07/05/24 TECHNIQUE: CT of the head without intravenous contrast. RADIATION DOSE: CTDIvol: 53.67 mGy, DLP: 950.35 mGy*cm FINDINGS: There is extra-axial/ subarachnoid hemorrhage along the medial aspect of the right frontal lobe measu ring 6 x 6 mm. There is supra sellar, basilar cistern subarachnoid hemorrhage. Subarachnoid hemorrhag e along the right insula/ frontoparietal lobe. Ventricles are midline and normal in size. Cisterns are patent. Moderate periventricular and subcort ical white matter chronic microvascular ischemic changes. There is moderate global cerebral volume lo ss. Right parietal encephalomalacia. Old bilateral basal ganglia lacunar infarcts. Mastoids well pneumatized. Paranasal sinuses enzymes. IMPRESSION: Scattered subarachnoid hemorrhage as described above most pronounced within the basilar cistern regio n. Recommend CT angiogram of the head to evaluate for aneurysm rupture and neurosurgical consultation . Moderate chronic microvascular ischemic changes. Moderate global cerebral volume loss. Findings discussed with KALIN KIDD at 10/30/2024 02:57 PM, and acknowledged receipt and understandi ng of the findings. ..
--- NOTE | 2024-10-30 15:09 | ECG ---
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
[2024-10-30] MEDS: levETIRAcetam 1000 mg/100ml 100 ML IV ONE (15:32)
[2024-10-30 16:00] VITALS: BP 138/77; PULSE 81; RESP 13; TEMP 97.8; O2SAT 100
== END 2024-10-30 16:14 | disposition short-term general hospital (02) ==
LOC: ER 12:51 → EDBD 12:51 → EDSEX 12:51 → ER 16:14
DX: S06.6X0A Traumatic subarachnoid hemorrhage without loss of consciousness, initial encounter (principal); F03.90 Unspecified dementia, unspecified severity, without behavioral disturbance, psychotic disturbance, mood disturbance, and anxiety; Z79.899 Other long term (current) drug therapy; Z79.84 Long term (current) use of oral hypoglycemic drugs; W18.39XA Other fall on same level, initial encounter; Y93.89 Activity, other specified; Y92.89 Other specified places as the place of occurrence of the external cause; Y99.8 Other external cause status
CPT/HCPCS: 36415; 70450; 71045; 80048; 82947; 84484; 85007; 85027; 93005; 96374; 99291; 99292; J1953; 82962; 96365